=== PATIENT | female | born 1955 | race Caucasian/White ===

== ENCOUNTER 2017-08-29 13:47 | Emergency (ER) | END 2017-08-29 15:52 | disposition home or self-care (01) ==

== ENCOUNTER 2018-06-06 14:16 | Emergency (ER) | payer MEDICARE, OTHER ==
[~2018-06-06] VITALS: Ht 167.6 cm; Wt 88.5 kg
[~2018-06-06 14:16] MED LIST: HYDR-4011 PO
[2018-06-06 14:31] VITALS: BP 121/67; PULSE 87; RESP 18; Ht 167.6 cm; Wt 88.5 kg
[2018-06-06] MEDS ORDERED: HYDROCODONE/APAP (5/325) TAB PO ONE (16:30)
[2018-06-06] MEDS ORDERED: HYDR-4011 PO (17:50)
--- NOTE | 2018-06-06 17:53 | ERD ---
ER Documentation Chief Complaint Chief Complaint p slip/fall [place]; back pains. no relief w cyclobenzaprine. steady gait. HPI 63-year-old female presents with low back pain after slip and fall approximately 6 days ago. She has no bowel or bladder incontinence, weakness, history of head injury, fevers, cough, shortness of breath or chest pain. History of chronic back pain was prescribed Flexeril by an urgent care without relief. ROS All systems reviewed and are negative except as per history of present illness. Medications Home Meds Active Scripts Hydrocodone/Acetaminophen ([place] 5-325 Tablet) 1 Each Tablet, 1 TAB PO Q6H PRN for PAIN, #14 TAB Prov:AKBAR BANKS MD 06/06/18 Hydrocodone/Acetaminophen ([place] 5-325 Tablet) 1 Each Tablet, 1 TAB PO Q6H PRN for PAIN, #10 TAB Prov:AKBAR BANKS MD 08/29/17 Allergies Allergies: Coded Allergies: oxycodone (Verified Allergy, Unknown, 08/29/17) PMhx/Soc History of Surgery: Yes (left hip) Anesthesia Reaction: No Hx Neurological Disorder: No Hx Respiratory Disorders: No Hx Cardiac Disorders: Yes (HTN) Hx Psychiatric Problems: No Hx Miscellaneous Medical Probl: No Hx Alcohol Use: No Hx Substance Use: No Hx Tobacco Use: No Smoking Status: Never smoker FmHx Family History: No diabetes, No coronary disease, No other Physical Exam Vitals Vital Signs Date Temp Pulse Resp B/P (MAP) Pulse Ox O2 O2 Flow FiO2 Time Delivery Rate 06/06/18 98.8 87 18 121/67 96 14:31 (85) Physical Exam Const: No acute distress Head: Atraumatic Eyes: Normal Conjunctiva ENT: Normal External Ears, Nose and Mouth. Neck: Full range of motion. No meningismus. Resp: Clear to auscultation bilaterally Cardio: Regular rate and rhythm, no murmurs Abd: Soft, non tender, non distended. Normal bowel sounds Skin: No petechiae or rashes Back: No midline or flank tenderness. Tenderness diffusely L4-5 paraspinous without exquisite midline tenderness or deformities. Ext: No cyanosis, or edema Neur: Awake and alert. Normal gait without appreciable focal neurologic deficits. Psych: Normal Mood and Affect Results 24 hrs Current Medications Medications Dose Sig/Vasu Start Time Status Last (Trade) Ordered Route PRN Stop Time Admin Dose Reason Admin 1 tab ONCE ONCE 06/06/18 DC 06/06/18 Acetaminophen PO 16:30 06/06/18 17:00 / 16:31 Hydrocodone Bitart ([place] (5/325)) Procedures/MDM X-ray LS-Spine 3V Interpreted by me: Bones: No fracture, or lytic lesions Joints: No dislocation Foreign body: None. Impression-stable degenerative changes with grade 1 anterior listhesis of L5-S1. She was given [place] 5 mg by mouth. Patient presents with low back pain after slip and fall backwards onto her buttocks 6 days ago. She has no signs of fracture, dislocation, neurologic deficit, signs of bacterial infection, additional concerning signs or symptoms. Cures review shows patient has a history of chronic pain medications although no prescription in 4 months and prescriptions were mostly by primary doctor. We will give a short course of [place] for acute pain with primary care follow-up and return precautions. The patient was stable with no new complaints during the ER course. Clinically, there is no current evidence to suggest meningitis, sepsis, acute abdomen, pneumonia, stroke, acute coronary syndrome, pulmonary embolism, aortic dissection or any other emergent condition appearing to require further evaluation or hospitalization. Patient counseled regarding my diagnostic impression and care plan. Prior to discharge all questions answered. Pt agrees with treatment plan and understands strict return precautions. Pt is instructed to follow up with primary care provider within 24-48 hours. Precautionary instructions provided including instructions to return to the ER if not improving or for any worsening or changing symptoms or concerns. Departure Diagnosis: Primary Impression: Back pain Back pain location: low back pain Chronicity: acute Back pain laterality: bilateral Sciatica presence: without sciatica Qualified Codes: M54.5 - Low back pain Condition: Stable Patient Instructions: Back Pain (Acute Or Chronic) Referrals: VINNY MOY (PCP) Additional Instructions: No acute findings on x-ray. See primary doctor for follow-up. Recheck otherwise for fevers, new or worsening symptoms. AKBAR BANKS MD Jun 06, 2018 17:53
== END 2018-06-06 17:58 | disposition home or self-care (01) ==
LOC: FTE 14:16
DX: M54.5 Low back pain (principal); I10 Essential (primary) hypertension
CPT/HCPCS: 72100

== ENCOUNTER 2018-07-03 10:31 | Inpatient (IN) | payer MEDICARE, OTHER ==
[~2018-07-03] VITALS: Ht 167.6 cm; Wt 89.0 kg
[2018-07-03] MEDS ORDERED: SOD CHLORIDE 0.9% 1,000 ML IV STA (10:41)
--- NOTE | 2018-07-03 10:44 | ERD ---
ER Documentation Chief Complaint Chief Complaint RIGHT SIDE NUMBNESS, ONSET YESTERDAY AT 0600, SLURRED SPEECH HPI This is a 63-year-old female who said she rolled out of bed yesterday morning at 6 AM and fell to her right side. She said that at that time she noticed that her right arm and leg felt numb and weak but she said she wanted to wait a day to see if it got better. She said it did not get better and is getting gradually a little bit worse when she woke today. She said her right arm and leg are numb and weak and is difficult to raise her right arm and to walk. She has no facial symptoms, she says she had a little bit of slurred speech yesterday but not today. Denies headache ROS All systems reviewed and are negative except as per history of present illness. Medications Home Meds Active Scripts Hydrocodone/Acetaminophen ([place] 5-325 Tablet) 1 Each Tablet, 1 TAB PO Q6H PRN for PAIN, #14 TAB Prov:AKBAR BANKS MD 06/06/18 Reported Medications Ergocalciferol (Vitamin D2) (VITAMIN D2) 50,000 Unit Capsule, 85014 UNIT PO Q SUN, CAP 07/03/18 Prednisone* (Prednisone*) 1 Mg Tablet, 2 MG PO DAILY, TAB 07/03/18 Omeprazole* (Omeprazole*) 20 Mg Capsule.dr, 20 MG PO DAILY, #30 CAP 07/03/18 Metoprolol Tartrate* (Lopressor*) 25 Mg Tab, 25 MG PO DAILY, #60 TAB 07/03/18 Zolpidem Tartrate* (Zolpidem Tartrate*) 10 Mg Tablet, 10 MG PO QHS PRN for INSOMNIA, #30 TAB 07/03/18 Acyclovir* (Acyclovir*) 200 Mg Capsule, 200 MG PO DAILY, CAP 07/03/18 Metoclopramide* (Reglan*) 5 Mg Tablet, 5 MG PO DAILY BEFORE MEALS, TAB 07/03/18 Cyclobenzaprine Hcl* (Cyclobenzaprine Hcl*) 10 Mg Tablet, 10 MG PO QHS, #60 TAB 07/03/18 Doxepin Hcl* (Doxepin Hcl*) 25 Mg Capsule, 50 MG PO HS, CAP 07/03/18 Discontinued Scripts Hydrocodone/Acetaminophen ([facility] 5-325 Tablet) 1 Each Tablet, 1 TAB PO Q6H PRN for PAIN, #10 TAB Prov:AKBAR BANKS MD 08/29/17 Allergies Allergies: Coded Allergies: oxycodone (Verified Allergy, Unknown, 07/03/18) PMhx/Soc History of Surgery: Yes (left hip) Anesthesia Reaction: No Hx Neurological Disorder: No Hx Respiratory Disorders: No Hx Cardiac Disorders: Yes (HTN) Hx Psychiatric Problems: No Hx Miscellaneous Medical Probl: No Hx Alcohol Use: No Hx Substance Use: No Hx Tobacco Use: No FmHx Family History: No coronary disease Physical Exam Vitals Vital Signs Date Temp Pulse Resp B/P (MAP) Pulse Ox O2 O2 Flow FiO2 Time Delivery Rate 07/03/18 Nasal 2 11:17 Cannula 07/03/18 98.1 87 18 154/74 99 10:37 (100) Physical Exam Const: Well-developed, well-nourished Head: Atraumatic, normocephalic Eyes: Normal Conjunctiva, PERRLA, EOMI, normal sclera, no nystagmus ENT: Normal External Ears, Nose and Mouth, moist mucus membranes. Neck: Full range of motion. No meningismus, no lymphadenopathy. Resp: Clear to auscultation bilaterally, no wheezing, rhonchi, rales Cardio: Regular rate and rhythm, no murmurs, S1 S2 present Abd: Soft, non tender x 4, non distended. Normal bowel sounds, no guarding or rebound, no pulsitile abdominal masses or bruits Skin: No petechiae or rashes, no ecchymosis , no maculopapular rash Back: No midline or flank tenderness Ext: No cyanosis, or edema, FROM x 4, normal inspection, neurovascularly intact x 4 Neur: Awake and alert, right arm and leg have decreased sensation, right arm strength is 2-3 out of 5 as well as the right leg, cerebellum intact Psych: Normal Mood and Affect Result Diagram: 07/03/18 1112 07/03/18 1112 Results 24 hrs Laboratory Tests Test 07/03/18 11:12 07/03/18 11:21 White Blood Count 6.2 10^3/ul Red Blood Count 4.57 10^6/ul Hemoglobin 11.9 g/dl Hematocrit 37.5 % Mean Corpuscular Volume 82.1 fl Mean Corpuscular Hemoglobin 26.0 pg Mean Corpuscular Hemoglobin Concent 31.7 g/dl Red Cell Distribution Width 14.4 % Platelet Count 267 10^3/UL Mean Platelet Volume 8.8 fl Immature Granulocytes % 0.200 % Neutrophils % 38.3 % Lymphocytes % 53.5 % Monocytes % 6.5 % Eosinophils % 1.0 % Basophils % 0.5 % Nucleated Red Blood Cells % 0.0 /100WBC Immature Granulocytes # 0.010 10^3/ul Neutrophils # 2.4 10^3/ul Lymphocytes # 3.3 10^3/ul Monocytes # 0.4 10^3/ul Eosinophils # 0.1 10^3/ul Basophils # 0.0 10^3/ul Nucleated Red Blood Cells # 0.0 10^3/ul Prothrombin Time 12.2 Sec Prothrombin Time Ratio 1.0 INR International Normalized Ratio 0.89 Activated Partial Thromboplast Time 26.8 Sec Sodium Level 141 mmol/L Potassium Level 3.6 mmol/L Chloride Level 105 mmol/L Carbon Dioxide Level 21 mmol/L Anion Gap 15 Blood Urea Nitrogen 11 mg/dl Creatinine 0.82 mg/dl Est Glomerular Filtrat Rate mL/min > 60 mL/min Glucose Level 147 mg/dl Calcium Level 9.6 mg/dl Troponin I < 0.012 ng/ml Triglycerides Level 153 mg/dl Cholesterol Level 213 mg/dl LDL Cholesterol, Calculated 128 mg/dl HDL Cholesterol 54 mg/dl Cholesterol/HDL Ratio 3.9 RATIO Bedside Glucose 134 mg/dL Current Medications Medications Dose Sig/Vasu Start Time Status Last (Trade) Ordered Route PRN Stop Time Admin Dose Reason Admin Sodium 1,000 ml @ Q1H STAT 07/03/18 DC 07/03/18 Chloride 1,000 mls/hr IV 10:41 07/03/18 11:37 11:40 Procedures/MDM Ordering MD: BRAYDEN CHAUDHRY DO Location: E/R Room/Bed: PROCEDURE: CT Brain without contrast. CLINICAL INDICATION: Weakness. Code stroke. TECHNIQUE: A CT of the brain without contrast was performed utilizing axial sections from the skull base through the vertex. The patient was scanned without intravenous contrast enhancement. Sagittal and coronal reformatted images were obtained using the data from the axial images. Total exam DLP is 835.45 mGy-cm. CTDIvol is 48.08 mGy. One or more of the following dose reduction techniques were used: Automated exposure control, adjustment of the mA and/or kV according to patient size, use of iterative reconstruction technique. COMPARISON: None available FINDINGS: There is normal peters-white matter differentiation. The ventricles and cisterns are normal. There is no intracranial hemorrhage or space-occupying lesion. There is no skull fracture or lytic lesion. IMPRESSION: 1. Normal noncontrast CT scan of the brain. Call report: A call report of the findings was made to Dr. Chaudhry on 07/03/2018 at 1055 hours. RPTAT: QQ Physician Karmen Date Time Electronically viewed and signed by Physician Karmen on 07/03/2018 10:58 KR/ CC: BRAYDEN CHAUDHRY DO [id number] Ordering MD: BRAYDEN CHAUDHRY DO Location: E/R Room/Bed: PROCEDURE: XR Chest. CLINICAL INDICATION: Stroke. TECHNIQUE: Single frontal view. COMPARISON: None. FINDINGS: The lungs are clear. The heart size is normal. There is no pleural effusion. There is no pneumothorax. IMPRESSION: 1. Normal chest radiograph. RPTAT: QQ Physician Karmen Date Time Electronically viewed and signed by Physician Karmen on 07/03/2018 12:05 KR/ CC: BRAYDEN CHAUDHRY DO [id number] EKG: Rate/Rhythm: Normal Sinus Rhythm,NL intervals QRS, ST, QT: NORMAL [place], QRS, QT] Impression: NORMAL EKG Patient is not a TPA candidate due to onset of symptoms over 24 hours ago. Will admit to the hospital for MRI/MRA and stroke workup. Departure Diagnosis: Primary Impression: CVA (cerebral vascular accident) CVA mechanism: unspecified Qualified Codes: I63.9 - Cerebral infarction, unspecified Condition: Stable BRAYDEN CHAUDHRY DO Jul 03, 2018 10:44
[2018-07-03] MEDS ORDERED: DOXE25CA2 PO (11:04)
[2018-07-03] MEDS ORDERED: CYCL10TA7 PO (11:05)
[2018-07-03] MEDS ORDERED: METO5TAB58 PO (11:06)
[2018-07-03] MEDS ORDERED: ACYC200C2 PO (11:07)
[2018-07-03] MEDS ORDERED: ZOLP10TA5 PO (11:08)
[2018-07-03] MEDS ORDERED: OMEP20CA16 PO (11:09)
[2018-07-03] MEDS ORDERED: METO-448 PO (11:09)
[2018-07-03] MEDS ORDERED: ERGO500013 PO (11:10)
[2018-07-03] MEDS ORDERED: PRED1TAB2 PO (11:10)
[2018-07-03] MEDS ORDERED: ONDANSETRON 4 MG INJ IV PRN ×2 (13:00→22:00)
[2018-07-03] MEDS ORDERED: ACETAMINOPHEN 325 MG TAB PO PRN ×2 (13:00→22:00)
[2018-07-03 21:14] VITALS: PULSE 70
[2018-07-03 21:30] VITALS: BP 142/66; PULSE 68; RESP 18; Ht 167.6 cm; Wt 89.0 kg
--- NOTE | 2018-07-03 21:53 | HP ---
Date/Time of Note Date/Time of Note DATE: 07/03/18 TIME: 21:53 Assessment/Plan VTE Prophylaxis SCD applied (from Nsg): Yes Pharmacological prophylaxis: NA/contraindicated Pharm contraindication: low risk/ambulating Lines/Catheters IV Catheter Type (from Nrsg): Saline Lock Assessment/Plan Hospital Course This is a 63-year-old female being admitted to the telemetry floor for observation for: 1. acute CVA: CT scan of the head is negative. EKG is normal. Patient is showing improvement of her weakness in her right upper and lower extremity. At the current time we will start the patient on aspirin 81 mg daily, high-dose statin.. Hemoglobin A1c was 6.0. Lipid levels noted. Will obtain a echocardiogram with bubble study. MRI and MRA of the brain and neck. PT OT/speech therapy evaluation. Bedside swallow eval. will consult neurology . Permissive hypertension for the first 24-48 hours. Fall precautions. 2. sarcoidosis: Continue prednisone, omeprazole 3. hypertension: We will hold metoprolol at the current time given permissive hypertension 4. Insomnia: hold ambien for now 5. HSV: Patient reports she gets lesions of the genitals. Currently she does not have any lesions. Will continue acyclovir for prophylaxis 6. Bulging lumbar disc: We will watch for now, hold off on Flexeril at the moment 7. DVT GI prophylaxis: SCDs, home PPI Further treatment strategy will be implemented as per the clinical course. Result Diagram: 07/03/18 1112 07/03/18 1112 Results 24hrs Laboratory Tests Test 07/03/18 11:12 07/03/18 11:21 07/03/18 12:30 White Blood Count 6.2 Red Blood Count 4.57 Hemoglobin 11.9 L Hematocrit 37.5 Mean Corpuscular Volume 82.1 Mean Corpuscular Hemoglobin 26.0 L Mean Corpuscular Hemoglobin Concent 31.7 L Red Cell Distribution Width 14.4 Platelet Count 267 Mean Platelet Volume 8.8 Immature Granulocytes % 0.200 Neutrophils % 38.3 L Lymphocytes % 53.5 H Monocytes % 6.5 Eosinophils % 1.0 Basophils % 0.5 Nucleated Red Blood Cells % 0.0 Immature Granulocytes # 0.010 Neutrophils # 2.4 Lymphocytes # 3.3 H Monocytes # 0.4 Eosinophils # 0.1 Basophils # 0.0 Nucleated Red Blood Cells # 0.0 Prothrombin Time 12.2 Prothrombin Time Ratio 1.0 INR International Normalized Ratio 0.89 Activated Partial Thromboplast Time 26.8 Sodium Level 141 Potassium Level 3.6 Chloride Level 105 Carbon Dioxide Level 21 Anion Gap 15 H Blood Urea Nitrogen 11 Creatinine 0.82 Est Glomerular Filtrat Rate mL/min > 60 Glucose Level 147 Hemoglobin A1c 6.0 H Calcium Level 9.6 Troponin I < 0.012 Triglycerides Level 153 H Cholesterol Level 213 H LDL Cholesterol, Calculated 128 HDL Cholesterol 54 Cholesterol/HDL Ratio 3.9 Bedside Glucose 134 Urine Color STRAW Urine Clarity CLEAR Urine pH 6.0 Urine Specific [place] 1.004 Urine Ketones NEGATIVE Urine Nitrite NEGATIVE Urine Bilirubin NEGATIVE Urine Urobilinogen NEGATIVE Urine Leukocyte Esterase NEGATIVE Urine Hemoglobin NEGATIVE Urine Glucose NEGATIVE Urine Total Protein NEGATIVE Urine Opiates Screen Negative Urine Barbiturates Negative Urine Amphetamines Screen Negative Urine Benzodiazepines Screen Negative Urine Cocaine Screen Negative Urine Cannabinoids Negative HPI/ROS Admit Date/Time Admit Date/Time Jul 03, 2018 at 12:52 Hx of Present Illness Chief complaint: Right-sided upper lower extremity weakness and slurred speech This is a 63-year-old female who presented to the emergency department with complaints of right-sided upper and lower extremity weakness and slurred speech. Patient reports that yesterday at approximately 6 AM she woke up and noticed that she could not move her right upper and lower extremities. She ended up rolling out of bed and falling. She was unable to still move her right upper arm and leg and was experiencing numbness as well. She called over to her son who came and picked her up and put her on the bed. She stated that she waited to see if maybe she would get better. She reports that her symptoms did not improve and she came to the emergency department. She was seen in the ER and had a CT scan of the head without contrast which did not show any acute abnormalities. Patient was subsequently admitted to the floor for further workup. Upon my examination of the patient at the bedside the patient now has improved movement of her right upper and lower extremities though it is not completely back to normal. She does not have any slurred speech. She reports that her son stated that she was having slurred speech and that they could not understand some of her words. . She denies any chest pain or shortness of breath. She does have a history of "a hole in her heart. She does report that she takes Ambien at night for sleeping along with doxepin for sleeping as well. But she has been taking this for some time. She has a history of sarcoidosis for which she is on prednisone for. EKG: Shows normal sinus rhythm at 75 bpm, no ST or T wave abnormalities concern ing for acute ischemia Allergies: Oxycodone Medications: See ALEIDA GÓMEZ Const: As per HPI Eyes : No pain discharge or redness or change in visual acuity ENT: No pain, sore throat, congestion, congestion, dysphagia or discharge Respiratory: No shortness of breath, cough, sputum, wheezing, or pleuritic pain Cardiovascular: No chest pain, palpitation, PND, or edema GI : no change in appetite, abdominal pain, nausea, vomiting, diarrhea, constipation, or change in the color his stool Genitourinary: No dysuria, hematuria, flank pain , discharge or CVA tenderness Musculoskeletal: No joint pain, back pain, neck pain, restricted range of motion in neck or joints Skin: No rash, bruising or hives Neuro: As per HPI Endocrine: No polyuria, polydipsia, temperature intolerance Psych: No hallucination, depression, anxiety or suicidal ideation PMH/Family/Social Past Medical History Lumbar bulging disc, heart murmur, insomnia, hypertension, sarcoidosis, HSV Medications Current Medications Ondansetron HCl (Zofran Inj) 4 mg ER BRIDGE PRN IV NAUSEA/VOMITING; Start 07/03/18 at 13:00; Stop 07/04/18 at 12:59 Acetaminophen (Tylenol Tab) 650 mg ER BRIDGE PRN PO .MILD PAIN 1-3 OR TEMP; Start 07/03/18 at 13:00; Stop 07/04/18 at 12:59 Coded Allergies: oxycodone (Verified Allergy, Unknown, 07/03/18) Past Surgical History Left hip replacement, abdominal hernia surgery, pelvic surgery, ovarian cyst removal, hemorrhoid surgery, jaw surgery Family History Significant Family History: no pertinent family hx Social History Alcohol Use: none Smoking Status: Never smoker Drug Use: none Exam/Review of Systems Vital Signs Vitals Vital Signs Date Temp Pulse Resp B/P (MAP) Pulse Ox O2 O2 Flow FiO2 Time Delivery Rate 07/03/18 66 16 138/71 97 Room Air 20:59 (93) 07/03/18 97.6 18:26 07/03/18 2 11:17 Exam Exam General: Patient currently lying in bed in no acute distress. HEENT: Atraumatic, normocephalic. The pupils are equal, round and reactive. Extraocular motor are intact Neck: Supple with full range of motion. No rigidity or meningismus Chest: Nontender Lungs: Clear to auscultation bilaterally no crackles rales or wheezing Heart: Normal S1-S2, Regular rhythm and rate. No murmur, S3, or S4 Abdomen: Soft , nontender, nondistended , bowel sounds are present. No guarding no rebound tenderness , No masses or organomegaly. No costovertebral temporal angle mass Extremities: Normal to inspection, no edema no cyanosis Neurologic: Normal mental status, speech normal. Cranial nerves II through XII intact. Strength 4 out of 5 in right upper and lower extremities, strength 5 out of 5 in left upper and lower extremity. Decreased research assistant member strength of the right compared to the left. Gait not assessed Additional Comments PROCEDURE: CT Brain without contrast. CLINICAL INDICATION: Weakness. Code stroke. TECHNIQUE: A CT of the brain without contrast was performed utilizing axial sections from the skull base through the vertex. The patient was scanned without intravenous contrast enhancement. Sagittal and coronal reformatted images were obtained using the data from the axial images. Total exam DLP is 835.45 mGy-cm. CTDIvol is 48.08 mGy. One or more of the following dose reduction techniques were used: Automated exposure control, adjustment of the mA and/or kV according to patient size, use of iterative reconstruction technique. COMPARISON: None available FINDINGS: There is normal peters-white matter differentiation. The ventricles and cisterns are normal. There is no intracranial hemorrhage or space-occupying lesion. There is no skull fracture or lytic lesion. IMPRESSION: 1. Normal noncontrast CT scan of the brain. Call report: A call report of the findings was made to Dr. Prabhakar on 07/03/2018 at 1055 hours. RPTAT: QQ Physician Karmen Date Time Electronically viewed and signed by Physician Karmen on 07/03/2018 10:58 KR/ CC: BRAYDEN PRABHAKAR DO [id number] PROCEDURE: XR Chest. CLINICAL INDICATION: Stroke. TECHNIQUE: Single frontal view. COMPARISON: None. FINDINGS: The lungs are clear. The heart size is normal. There is no pleural effusion. There is no pneumothorax. IMPRESSION: 1. Normal chest radiograph. RPTAT: QQ Momo Oakley, Physician Date Time Electronically viewed and signed by Momo Oakley, Physician on 07/03/2018 12:05 KR/ CC: BRAYDEN PRABHAKAR DO [id number] ALAN ROSADO Jul 03, 2018 21:53
[2018-07-03] MEDS ORDERED: NACL 0.9% 3 ML SYG IV SCH (22:00)
[2018-07-03] MEDS ORDERED: DOCUSATE SODIUM 100 MG CAP PO PRN (22:00)
[2018-07-03] MEDS ORDERED: BISACODYL (EC) 5 MG TAB PO PRN (22:00)
[2018-07-03] MEDS ORDERED: hydrALAzine 20 MG INJ IV PRN (23:30)
[2018-07-03] MEDS ORDERED: ZOLPIDEM 5 MG TAB PO PRN (23:30)
[2018-07-04] VITALS (10 sets, daily range): BP systolic 118–140; BP diastolic 60–80; PULSE 67–83; RESP 17–20
[2018-07-04] MEDS: ATORVASTATIN 80 MG TAB PO SCH ×2 (00:08→20:08)
[2018-07-04] MEDS ORDERED: LORAZEPAM 2 MG INJ IV ONE (03:00)
[2018-07-04] MEDS: PANTOPRAZOLE (EC) 40 MG TAB PO SCH (06:46)
--- NOTE | 2018-07-04 07:17 | CONS ---
Assessment/Plan Assessment/Plan Hospital Course 63 F c/ HTN who presents for evaluation of R sided weakness c/b fall...for which neurology is consulted. The clinical picture is most ominously concerning for stroke.. Head CT is unrevealing. LDL 128 P: Await MRI brain for further characterization Agree w/ asa/lipitor daily for now, for stroke prevention pending the above PT/OT/ST as necessary BP control and other medical management per primary Will follow clinically, to recommend additional neurologic studies as necessary Consultation Date/Type/Reason Admit Date/Time Jul 03, 2018 at 12:52 Type of Consult Neurology Reason for Consultation stroke Requesting Provider: ALAN ROSADO Date/Time of Note DATE: 07/04/18 TIME: 07:17 Hx of Present Illness This is a 63-year-old female who presented to the emergency department with complaints of right-sided upper and lower extremity weakness and slurred speech. Patient reports that yesterday at approximately 6 AM she woke up and noticed that she could not move her right upper and lower extremities. She ended up rolling out of bed and falling. She was unable to still move her right upper arm and leg and was experiencing numbness as well. She called over to her son who came and picked her up and put her on the bed. She stated that she waited to see if maybe she would get better. She reports that her symptoms did not improve and she came to the emergency department. She was seen in the ER and had a CT scan of the head without contrast which did not show any acute abnormalities. Patient was subsequently admitted to the floor for further lexy p. Upon my examination of the patient at the bedside the patient now has improved movement of her right upper and lower extremities though it is not completely back to normal. She does not have any slurred speech. She reports that her son stated that she was having slurred speech and that they could not understand some of her words. . She denies any chest pain or shortness of breath. She does have a history of "a hole in her heart. She does report that she takes Ambien at night for sleeping along with doxepin for sleeping as well. But she has been taking this for some time. She has a history of sarcoidosis for which she is on prednisone for. EKG: Shows normal sinus rhythm at 75 bpm, no ST or T wave abnormalities concerning for acute ischemia Allergies: Oxycodone 12 PT ROS ow neg Exam/Review of Systems Exam Vitals Vital Signs Date Temp Pulse Resp B/P (MAP) Pulse Ox O2 O2 Flow FiO2 Time Delivery Rate 07/04/18 98.5 71 18 129/70 94 04:00 (89) 07/03/18 Room Air 20:59 07/03/18 2 11:17 Intake and Output 07/03/18 07/03/18 07/04/18 1515:00 23:00 07:00 IntakeIntake Total 350 ml BalanceBalance 350 ml Exam PE: Gen Appearance: No Apparent Distress HEENT: Normocephalic Cardiovascular: Regular rate Abdomen: Soft Extremities: Dry NE: The patient was alert and oriented. Language was normal. Fund of knowledge was normal. Pupils were equal and reactive to light. There was no afferent pupillary defect. Visual lopez were normal. Funduscopic examination was limited. Extra-ocular movements were full. Ptosis was absent. There was no nystagmus. Facial sensation was normal. Face was symmetric with normal strength. Hearing was intact. Palate movements were normal. Neck strength was normal. There was normal tongue bulk and speed of movement. Tone was normal. Muscle bulk was normal. I did not see fasciculations. Arms and legs were mildly weak on the right Vibration sensation was normal. Temperature and pinprick sensation was normal. Rapid alternating movements were normal. There was no dysmetria. There was no intention tremor. Gait was deferred due to bedrest. Arm and leg reflexes were symmetric. Ch's sign was absent. Plantar re sponses were flexor. Results Result Diagram: 07/04/1860107/04/18 06 Results 24hrs Laboratory Tests Test 07/03/18 11:12 07/03/18 11:21 07/03/18 12:30 07/04/18 06:02 White Blood Count 6.2 6.8 Red Blood Count 4.57 4.27 Hemoglobin 11.9 L 11.0 L Hematocrit 37.5 34.4 L Mean Corpuscular Volume 82.1 80.6 L Mean Corpuscular 26.0 L 25.8 L Hemoglobin Mean Corpuscular 31.7 L 32.0 Hemoglobin Concent Red Cell Distribution 14.4 14.4 Width Platelet Count 267 264 Mean Platelet Volume 8.8 8.8 Immature Granulocytes % 0.200 0.100 Neutrophils % 38.3 L 31.8 L Lymphocytes % 53.5 H 60.1 H Monocytes % 6.5 6.3 Eosinophils % 1.0 1.3 Basophils % 0.5 0.4 Nucleated Red Blood 0.0 0.0 Cells % Immature Granulocytes # 0.010 0.010 Neutrophils # 2.4 2.2 Lymphocytes # 3.3 H 4.1 H Monocytes # 0.4 0.4 Eosinophils # 0.1 0.1 Basophils # 0.0 0.0 Nucleated Red Blood 0.0 0.0 Cells # Prothrombin Time 12.2 Prothrombin Time Ratio 1.0 INR International 0.89 Normalized Ratio Activated 26.8 Partial Thromboplast Time Sodium Level 141 140 Potassium Level 3.6 4.0 Chloride Level 105 105 Carbon Dioxide Level 21 25 Anion Gap 15 H 10 # Blood Urea Nitrogen 11 12 Creatinine 0.82 0.77 Est Glomerular Filtrat > 60 > 60 Rate mL/min Glucose Level 147 109 Hemoglobin A1c 6.0 H Calcium Level 9.6 9.4 Troponin I < 0.012 Triglycerides Level 153 H Cholesterol Level 213 H LDL Cholesterol, 128 Calculated HDL Cholesterol 54 Cholesterol/HDL Ratio 3.9 Bedside Glucose 134 Urine Color STRAW Urine Clarity CLEAR Urine pH 6.0 Urine Specific [place] 1.004 Urine Ketones NEGATIVE Urine Nitrite NEGATIVE Urine Bilirubin NEGATIVE Urine Urobilinogen NEGATIVE Urine Leukocyte Esterase NEGATIVE Urine Hemoglobin NEGATIVE Urine Glucose NEGATIVE Urine Total Protein NEGATIVE Urine Opiates Screen Negative Urine Barbiturates Negative Urine Amphetamines Negative Screen Urine Benzodiazepines Negative Screen Urine Cocaine Screen Negative Urine Cannabinoids Negative Magnesium Level 1.9 Total Bilirubin 0.3 Direct Bilirubin 0.00 Indirect Bilirubin 0.3 Aspartate Amino 23 Transf (AST/SGOT) Alanine 14 Aminotransferase (ALT/SG PT) Alkaline Phosphatase 71 Total Protein 7.1 Albumin 3.8 Globulin 3.30 H Albumin/Globulin Ratio 1.15 Thyroid Stimulating Pending Hormone (TSH) Medications Medication Current Medications IV Flush (NS 3 ml) 3 ml PER PROTOCOL IV ; Start 07/03/18 at 22:00 Ondansetron HCl (Zofran Inj) 4 mg Q6H PRN IV NAUSEA/VOMITING; Start 07/03/18 at 22:00 Acetaminophen (Tylenol Tab) 650 mg Q6H PRN PO .PAIN 1-3 OR TEMP; Start 07/03/18 at 22:00 Docusate Sodium (Colace) 100 mg Q12H PRN PO .CONSTIPATION; Start 07/03/18 at 22:00 Bisacodyl (Dulcolax) 5 mg DAILY PRN PO .CONSTIPATION; Start 07/03/18 at 22:00 Pantoprazole (Protonix Tab) 40 mg DAILY@06 PO Last administered on 07/04/18at 06:46; Admin Dose 40 MG; Start 07/04/18 at 06:00 Acyclovir (Zovirax) 200 mg DAILY PO ; Start 07/04/18 at 09:00 Prednisone (Prednisone) 2 mg DAILY PO ; Start 07/04/18 at 09:00 Hydralazine HCl (Apresoline) 10 mg Q4H PRN IV ELEVATED BLOOD PRESSURE; Start 07/03/18 at 23:30 Metoprolol Tartrate (Lopressor) 25 mg DAILY PO ; Start 07/04/18 at 09:00 Aspirin (Halfprin) 81 mg DAILY PO ; Start 07/04/18 at 09:00 Atorvastatin Calcium (Lipitor) 80 mg HS PO Last administered on 07/04/18at 00:08; Admin Dose 80 MG; Start 07/03/18 at 23:30 Past Medical History reviewed Home Meds Active Scripts Hydrocodone/Acetaminophen ([place] 5-325 Tablet) 1 Each Tablet, 1 TAB PO Q6H PRN for PAIN, #14 TAB Prov:AKBAR BANKS MD 06/06/18 Reported Medications Ergocalciferol (Vitamin D2) (VITAMIN D2) 50,000 Unit Capsule, 49640 UNIT PO Q SUN, CAP 07/03/18 Prednisone* (Prednisone*) 1 Mg Tablet, 2 MG PO DAILY, TAB 07/03/18 Omeprazole* (Omeprazole*) 20 Mg Capsule.dr, 20 MG PO DAILY, #30 CAP 07/03/18 Metoprolol Tartrate* (Lopressor*) 25 Mg Tab, 25 MG PO DAILY, #60 TAB 07/03/18 Zolpidem Tartrate* (Zolpidem Tartrate*) 10 Mg Tablet, 10 MG PO QHS PRN for INSOMNIA, #30 TAB 07/03/18 Acyclovir* (Acyclovir*) 200 Mg Capsule, 200 MG PO DAILY, CAP 07/03/18 Metoclopramide* (Reglan*) 5 Mg Tablet, 5 MG PO DAILY BEFORE MEALS, TAB 07/03/18 Cyclobenzaprine Hcl* (Cyclobenzaprine Hcl*) 10 Mg Tablet, 10 MG PO QHS, #60 TAB 07/03/18 Doxepin Hcl* (Doxepin Hcl*) 25 Mg Capsule, 50 MG PO HS, CAP 07/03/18 Discontinued Scripts Hydrocodone/Acetaminophen ([place] 5-325 Tablet) 1 Each Tablet, 1 TAB PO Q6H PRN for PAIN, #10 TAB Prov:AKBAR ABNKS MD 08/29/17 Medications Current Medications IV Flush (NS 3 ml) 3 ml PER PROTOCOL IV ; Start 07/03/18 at 22:00 Ondansetron HCl (Zofran Inj) 4 mg Q6H PRN IV NAUSEA/VOMITING; Start 07/03/18 at 22:00 Acetaminophen (Tylenol Tab) 650 mg Q6H PRN PO .PAIN 1-3 OR TEMP; Start 07/03/18 at 22:00 Docusate Sodium (Colace) 100 mg Q12H PRN PO .CONSTIPATION; Start 07/03/18 at 22:00 Bisacodyl (Dulcolax) 5 mg DAILY PRN PO .CONSTIPATION; Start 07/03/18 at 22:00 Pantoprazole (Protonix Tab) 40 mg DAILY@06 PO Last administered on 07/04/18at 06:46; Admin Dose 40 MG; Start 07/04/18 at 06:00 Acyclovir (Zovirax) 200 mg DAILY PO ; Start 07/04/18 at 09:00 Prednisone (Prednisone) 2 mg DAILY PO ; Start 07/04/18 at 09:00 Hydralazine HCl (Apresoline) 10 mg Q4H PRN IV ELEVATED BLOOD PRESSURE; Start 07/03/18 at 23:30 Metoprolol Tartrate (Lopressor) 25 mg DAILY PO ; Start 07/04/18 at 09:00 Aspirin (Halfprin) 81 mg DAILY PO ; Start 07/04/18 at 09:00 Atorvastatin Calcium (Lipitor) 80 mg HS PO Last administered on 07/04/18at 00:08; Admin Dose 80 MG; Start 07/03/18 at 23:30 Allergies: Coded Allergies: oxycodone (Verified Allergy, Unknown, 07/03/18) Past Surgical History reviewed Social History Alcohol Use: none Smoking Status: Never smoker Drug Use: none JA VEGA Jul 04, 2018 07:17
[2018-07-04] MEDS: METOPROLOL 25 MG TAB PO SCH (08:58)
[2018-07-04] MEDS: ASPIRIN (EC) 81 MG TAB PO SCH (08:58)
[2018-07-04] MEDS: ACYCLOVIR 200 MG CAP PO SCH (08:58)
[2018-07-04] MEDS ORDERED: predniSONE 1 MG TAB PO SCH (09:00)
--- NOTE | 2018-07-04 11:14 | QN ---
Documentation Comment 63-year-old female with history of Migraines,GERD, HSV, osteoarthritis, sa rcoidosis, admitted with right-sided weakness and slurred speech. Patient continued to have mild weakness on her right side, however improved from prior. Speech is clearer. Neurology consultation has been requested and we will follow-up recommendations. Continue with aspirin/statin regimen. Follow-up MRI ordered. PT eval and treat. Case d/w MINH Garcia V. MEDIA MARKETING DIRECTOR Jul 04, 2018 11:14
--- NOTE | 2018-07-04 11:27 | PN ---
Date/Time of Note Date/Time of Note DATE: 07/04/18 TIME: 11:23 Assessment/Plan VTE Prophylaxis Risk score (from Ns)>0 risk: 3 SCD applied (from Ns): Yes Pharmacological prophylaxis: NA/contraindicated Pharm contraindication: low risk/ambulating Lines/Catheters [facility] Urinary Cath still in place: No Assessment/Plan Hospital Course SUBJECTIVE: Sitting up in chair, with improved right-sided weakness. Speech is clearer. No headache or other distress reported. OBJECTIVE: Vital signs-see below PHYSICAL EXAM: Constitutional: Well-developed, adequately built, lying in bed comfortably. Psych: nl mood/affect, no complaints Head: atraumatic, normocephalic Eyes: nl conjunctiva, nl sclera ENMT: mucosa pink and moist, nl external ears & nose Neck: non-tender, supple Respiratory: clear to auscultation, normal air movement Cardiovascular: nl pulses, regular rate and rhythm Gastrointestinal: non-tender, soft, bowel sounds active in all 4 quadrants. Musculoskeletal/extremities: +Right slide w/mild weakness. Motor strength 5/5. nl extremities to inspection,Normal pulses,no cyanosis, no edema. Neurological: Alert oriented 3,speech slightly slurred, nl strength Skin: nl turgor ASSESSMENT/PLAN:3-year-old female with history of Migraines,GERD, HSV, osteoarthritis, sarcoidosis, admitted with right-sided weakness and slurred speech. 1.Right-sided weakness/slurred speech, Clinical symptoms most consistent w/possible migraine hemiplegia. Acute CVA cannot be excluded. -Symptoms resolving.... -cont. Aspirin/statin, -follow-up MRI studies/neurology recommendations, -PT/OT/ST 2. Sarcoidosis - Continue prednisone,PPI 3. Hypertension -Keep normotensive, resume antihypertensives as 24 hr time elapse for permissib le BP is done 4. HSV -Currently she does not have any lesions. -Obtain HSV/HIV antibodies -on acyclovir prophylaxis 6.Lumbar disc prolapse, chronic -no acute issues 7.Migraine headaches -No acute issues -PRN Pain meds DVT GI prophylaxis: SCDs, home PPI Dispo:Continue current management. Follow-up neurology recommendations. patient was seen in collaboration with Dr. Yoon. Result Diagram: 07/04/18 0602 07/04/18 0602 Results 24hrs Laboratory Tests Test 07/03/18 12:30 07/04/18 06:02 Urine Color STRAW Urine Clarity CLEAR Urine pH 6.0 Urine Specific [place] 1.004 Urine Ketones NEGATIVE Urine Nitrite NEGATIVE Urine Bilirubin NEGATIVE Urine Urobilinogen NEGATIVE Urine Leukocyte Esterase NEGATIVE Urine Hemoglobin NEGATIVE Urine Glucose NEGATIVE Urine Total Protein NEGATIVE Urine Opiates Screen Negative Urine Barbiturates Negative Urine Amphetamines Screen Negative Urine Benzodiazepines Screen Negative Urine Cocaine Screen Negative Urine Cannabinoids Negative White Blood Count 6.8 Red Blood Count 4.27 Hemoglobin 11.0 L Hematocrit 34.4 L Mean Corpuscular Volume 80.6 L Mean Corpuscular Hemoglobin 25.8 L Mean Corpuscular Hemoglobin Concent 32.0 Red Cell Distribution Width 14.4 Platelet Count 264 Mean Platelet Volume 8.8 Immature Granulocytes % 0.100 Neutrophils % 31.8 L Lymphocytes % 60.1 H Monocytes % 6.3 Eosinophils % 1.3 Basophils % 0.4 Nucleated Red Blood Cells % 0.0 Immature Granulocytes # 0.010 Neutrophils # 2.2 Lymphocytes # 4.1 H Monocytes # 0.4 Eosinophils # 0.1 Basophils # 0.0 Nucleated Red Blood Cells # 0.0 Sodium Level 140 Potassium Level 4.0 Chloride Level 105 Carbon Dioxide Level 25 Anion Gap 10 # Blood Urea Nitrogen 12 Creatinine 0.77 Est Glomerular Filtrat Rate mL/min > 60 Glucose Level 109 Calcium Level 9.4 Magnesium Level 1.9 Total Bilirubin 0.3 Direct Bilirubin 0.00 Indirect Bilirubin 0.3 Aspartate Amino Transf (AST/SGOT) 23 Alanine Aminotransferase (ALT/SGPT) 14 Alkaline Phosphatase 71 Total Protein 7.1 Albumin 3.8 Globulin 3.30 H Albumin/Globulin Ratio 1.15 Thyroid Stimulating Hormone (TSH) 3.190 Exam/Review of Systems Exam Vitals Vital Signs Date Temp Pulse Resp B/P (MAP) Pulse Ox O2 O2 Flow FiO2 Time Delivery Rate 07/04/18 79 08:00 07/04/18 98.6 20 132/65 94 Room Air 07:53 (87) 07/03/18 2 11:17 Intake and Output 07/03/18 07/03/18 07/04/18 1414:59 22:59 06:59 IntakeIntake Total 350 ml BalanceBalance 350 ml Results Results 24hrs Laboratory Tests Test 07/03/18 12:30 07/04/18 06:02 Urine Color STRAW Urine Clarity CLEAR Urine pH 6.0 Urine Specific [place] 1.004 Urine Ketones NEGATIVE Urine Nitrite NEGATIVE Urine Bilirubin NEGATIVE Urine Urobilinogen NEGATIVE Urine Leukocyte Esterase NEGATIVE Urine Hemoglobin NEGATIVE Urine Glucose NEGATIVE Urine Total Protein NEGATIVE Urine Opiates Screen Negative Urine Barbiturates Negative Urine Amphetamines Screen Negative Urine Benzodiazepines Screen Negative Urine Cocaine Screen Negative Urine Cannabinoids Negative White Blood Count 6.8 Red Blood Count 4.27 Hemoglobin 11.0 L Hematocrit 34.4 L Mean Corpuscular Volume 80.6 L Mean Corpuscular Hemoglobin 25.8 L Mean Corpuscular Hemoglobin Concent 32.0 Red Cell Distribution Width 14.4 Platelet Count 264 Mean Platelet Volume 8.8 Immature Granulocytes % 0.100 Neutrophils % 31.8 L Lymphocytes % 60.1 H Monocytes % 6.3 Eosinophils % 1.3 Basophils % 0.4 Nucleated Red Blood Cells % 0.0 Immature Granulocytes # 0.010 Neutrophils # 2.2 Lymphocytes # 4.1 H Monocytes # 0.4 Eosinophils # 0.1 Basophils # 0.0 Nucleated Red Blood Cells # 0.0 Sodium Level 140 Potassium Level 4.0 Chloride Level 105 Carbon Dioxide Level 25 Anion Gap 10 # Blood Urea Nitrogen 12 Creatinine 0.77 Est Glomerular Filtrat Rate mL/min > 60 Glucose Level 109 Calcium Level 9.4 Magnesium Level 1.9 Total Bilirubin 0.3 Direct Bilirubin 0.00 Indirect Bilirubin 0.3 Aspartate Amino Transf (AST/SGOT) 23 Alanine Aminotransferase (ALT/SGPT) 14 Alkaline Phosphatase 71 Total Protein 7.1 Albumin 3.8 Globulin 3.30 H Albumin/Globulin Ratio 1.15 Thyroid Stimulating Hormone (TSH) 3.190 Medications Medication Current Medications IV Flush (NS 3 ml) 3 ml PER PROTOCOL IV ; Start 07/03/18 at 22:00 Ondansetron HCl (Zofran Inj) 4 mg Q6H PRN IV NAUSEA/VOMITING; Start 07/03/18 at 22:00 Acetaminophen (Tylenol Tab) 650 mg Q6H PRN PO .PAIN 1-3 OR TEMP; Start 07/03/18 at 22:00 Docusate Sodium (Colace) 100 mg Q12H PRN PO .CONSTIPATION; Start 07/03/18 at 22:00 Bisacodyl (Dulcolax) 5 mg DAILY PRN PO .CONSTIPATION; Start 07/03/18 at 22:00 Pantoprazole (Protonix Tab) 40 mg DAILY@06 PO Last administered on 07/04/18at 06:46; Admin Dose 40 MG; Start 07/04/18 at 06:00 Acyclovir (Zovirax) 200 mg DAILY PO Last administered on 07/04/18at 08:58; Admin Dose 200 MG; Start 07/04/18 at 09:00 Hydralazine HCl (Apresoline) 10 mg Q4H PRN IV ELEVATED BLOOD PRESSURE; Start 07/03/18 at 23:30 Metoprolol Tartrate (Lopressor) 25 mg DAILY PO Last administered on 07/04/18at 08:58; Admin Dose 25 MG; Start 07/04/18 at 09:00 Aspirin (Halfprin) 81 mg DAILY PO Last administered on 07/04/18at 08:58; Admin Dose 81 MG; Start 07/04/18 at 09:00 Atorvastatin Calcium (Lipitor) 80 mg HS PO Last administered on 07/04/18at 00:08; Admin Dose 80 MG; Start 07/03/18 at 23:30 Prednisone (Prednisone) 1 mg DAILY PO ; Start 07/05/18 at 09:00 MINH BRAUN NP Jul 04, 2018 11:27
--- NOTE | 2018-07-04 20:17 | RADRPT ---
Echocardiogram Report Patient Name: MICHEAL VERNONPatient ID: [id number] : 1955 (63y 5m)Study Date: 07/04/2018 10:06:00 AM Gender: FAccession #: [id number] Tech: LE Location: Ref.Physician: ALAN ROSADO Height(Cm): BSA: Weight(Kg): Quality: GoodAccount #: Procedures: Echocardiographic Report: Transthoracic echocardiogram with complete 2D, M-Mode, and doppler examination. Indications: Cerebrovascular Accident. Measurements: 2D/M Mode Doppler Measurement Value Normal Range Measurement Value Normal Range AoR Diam MM 3.4 [ 2.3 - 3.1 ] cm DELMI Vmax 2.7 [ 2.0 - 4.0 ] cm2 ACS MM 2.3 [ 2.7 - 3.3 ] cm AV Mean Lobo 0.7 [ 70.0 - 90.0 ] cm/sec LA/Ao MM 1.1 ratio AV Mean PG 2.0 [ 2.0 - 4.0 ] mmHg LA Dimen MM 3.7 AV Peak Lobo 0.9 [ 100.0 - 170.0 ] cm/sec LVIDd 2D 4.7 [ 3.8 - 5.2 ] cm AV Peak PG 3.0 [ 2.0 - 9.0 ] mmHg LVIDs 2D 3.5 [ 2.2 - 3.5 ] cm AV VTI 19.6 cm LVPWd 2D 1.0 [ 0.6 - 0.9 ] cm LVOT Peak Lobo 0.7 [ 70.0 - 110.0 ] cm/sec IVSd 2D 1.0 [ 0.6 - 0.9 ] cm LVOT Peak PG 2.0 [ 2.0 - 6.0 ] mmHg IVS/LVPW 2D 1.0 ratio MV E Peak Lobo 0.7 [ 60.0 - 130.0 ] cm/sec LVOT Diam 2.0 [ 2.1 - 2.5 ] cm MV A Peak Lobo 0.9 [ 100.0 - 120.0 ] cm/sec LVOT Area 3.1 cm2 MV E/A 0.8 [ 0.8 - 1.5 ] ratio MV Decel Time 155 [ 104 - 258 ] msec Lat E` Lobo 0.1 [ 10.0 - 15.0 ] cm/sec Med E` Lobo 0.1 cm/sec MV E/A 0.8 [ 0.8 - 1.5 ] ratio TR Peak Lobo 2.3 [ 100.0 - 280.0 ] cm/sec TR Peak PG 22.0 mmHg PV Peak Lobo 0.6 [ 40.0 - 80.0 ] cm/sec PV Peak PG 1.0 mmHg Findings: Left Ventricle: Normal left ventricular systolic function. Normal left ventricular cavity size. Normal left ventricular wall thickness. Ejection fraction is visually estimated at 60 %. Tissue Doppler/Mitral Doppler indices are consistent with impaired relaxation (Stage I diastolic dysfunction). Right Ventricle: Normal right ventricular size. Normal right ventricular systolic function. Left Atrium: The left atrium is normal in size. Right Atrium: The right atrium is normal in size. Atrial Septum: Normal atrial septum. Bubble study was performed with and with out valsalva indicating no evidence of intra atrial shunt. Mitral Valve: Normal appearance of the mitral valve. Trace mitral regurgitation. Aortic Valve: Normal appearance of the aortic valve. No significant aortic stenosis or insufficiency. Tricuspid Valve: Normal appearance of the tricuspid valve. Estimated peak PA systolic pressure 25 mmHg. There is trace tricuspid regurgitation. Pulmonic Valve: Normal pulmonic valve appearance. There is trace pulmonic regurgitation. Pericardium: Normal pericardium with no significant pericardial effusion. Aorta: Normal aortic root. IVC: Normal size and normal respiratory collapse consistent with normal right atrial pressure. Conclusions: Normal left ventricular systolic function. Grade 1 diastolic dysfunction. Bubble study negative for right to left shunting. Trace mitral, tricuspid and pulmonic regurgitation with normal pulmonary pressures. Electronically Signed By: Jenniffer Benavides 2018-07-04 20:17:12 PDT
[2018-07-05] VITALS (11 sets, daily range): BP systolic 107–131; BP diastolic 56–69; PULSE 59–102; RESP 17–18
[2018-07-05] MEDS ORDERED: LORAZEPAM 2 MG INJ IV ONE
[2018-07-05] MEDS: PANTOPRAZOLE (EC) 40 MG TAB PO SCH (06:14)
--- NOTE | 2018-07-05 07:03 | CONS ---
Assessment/Plan Assessment/Plan Hospital Course 63 F c/ HTN who presents for evaluation of R sided weakness c/b fall...for which neurology is consulted. MRI brain confirmed an acute L fronto-parietal infarction. MRA Neck was notable for moderate to severe L cervical ICA stenosis w/ nonocclusive thrombus.. MRA Head was unremarkable LDL 128; A1C 6.0 P: Vascular surgery consultation for evaluation and management of symptomatic L cervi al ICA stenosis. Add ESR, RPR Agree w/ asa/lipitor daily for now for secondary stroke prevention PT/OT/ST as necessary BP control and other medical management per primary Will follow clinically Consultation Date/Type/Reason Admit Date/Time Jul 03, 2018 at 12:52 Type of Consult Neurology Reason for Consultation stroke Requesting Provider: ALAN ROSADO Date/Time of Note DATE: 07/05/18 TIME: 07:02 24 HR Interval Summary Free Text/Dictation s/p MRI/A brain Exam Vital Signs Vitals Vital Signs Date Temp Pulse Resp B/P (MAP) Pulse Ox O2 O2 Flow FiO2 Time Delivery Rate 07/05/18 98.1 86 17 120/69 98 05:54 (86) 07/04/18 Room Air 15:56 07/03/18 2 11:17 Intake and Output 07/04/18 07/04/18 07/05/18 1515:00 23:00 07:00 IntakeIntake Total 840 ml 200 ml OutputOutput Total 900 ml BalanceBalance -60 ml 200 ml Exam PE: Gen Appearance: No Apparent Distress HEENT: Normocephalic Cardiovascular: Regular rate Abdomen: Soft Extremities: Dry NE: The patient was alert and oriented. Language was normal. Fund of knowledge was n ormal. Pupils were equal and reactive to light. There was no afferent pupillary defect. Visual lopez were normal. Funduscopic examination was limited. Extra-ocular movements were full. Ptosis was absent. There was no nystagmus. Facial sensation was normal. Face was symmetric with normal strength. Hearing was intact. Palate movements were normal. Neck strength was normal. There was normal tongue bulk and speed of movement. Tone was normal. Muscle bulk was normal. I did not see fasciculations. Arms and legs were mildly weak on the right Vibration sensation was normal. Temperature and pinprick sensation was normal. Rapid alternating movements were normal. There was no dysmetria. There was no intention tremor. Gait was deferred due to bedrest. Arm and leg reflexes were symmetric. Ch's sign was absent. Plantar responses were flexor. JA VEGA Jul 05, 2018 07:02 CAROLINE PERSON NP Jul 05, 2018 14:59
[2018-07-05] MEDS: ACYCLOVIR 200 MG CAP PO SCH (08:21)
[2018-07-05] MEDS: ASPIRIN (EC) 81 MG TAB PO SCH (08:21)
[2018-07-05] MEDS: predniSONE 1 MG TAB PO SCH (08:21)
[2018-07-05] MEDS: METOPROLOL 25 MG TAB PO SCH (08:22)
--- NOTE | 2018-07-05 10:06 | PN ---
Date/Time of Note Date/Time of Note DATE: 07/05/18 TIME: 10:02 Assessment/Plan VTE Prophylaxis Risk score (from Ns)>0 risk: 3 SCD applied (from Ns): Yes Pharmacological prophylaxis: NA/contraindicated Pharm contraindication: low risk/ambulating Lines/Catheters [facility]from [facility] Saline Lock Urinary Cath still in place: No Assessment/Plan Hospital Course SUBJECTIVE: lying in bed, having right-sided weakness. Speech is clear. OBJECTIVE: Vital signs-see below PHYSICAL EXAM: Constitutional: Well-developed, adequately built, lying in bed comfortably. Psych: nl mood/affect, no complaints Head: atraumatic, normocephalic Eyes: nl conjunctiva, nl sclera ENMT: mucosa pink and moist, nl external ears & nose Neck: non-tender, supple Respiratory: clear to auscultation, normal air movement Cardiovascular: nl pulses, regular rate and rhythm Gastrointestinal: non-tender, soft, bowel sounds active in all 4 quadrants. Musculoskeletal/extremities: +Right slide w/mild weakness. Motor strength 5/5. nl extremities to inspection,Normal pulses,no cyanosis, no edema. Neurological: Alert oriented 3,speech slightly slurred, nl strength Skin: nl turgor ASSESSMENT/PLAN:3-year-old female with history of Migraines,GERD, HSV, osteoarthritis, sarcoidosis, admitted with right-sided weakness and slurred speech,found to have acute stroke. 1.Acute cerebrovascular accident W/ left ICA occlusion -mri: Acute left posterior frontal and anterior parietal periventricular and deep white matter ischemic infarct. -cont. Aspirin/statin -PT/OT/ST 2.Symptomatic left ICA stenosis. -CTA: Left proximal internal carotid artery incompletely occlusive thrombus over a 12 mm line and moderate to severe 60-70% stenosis=>spoke w/ and recommended vascular eval. -Vascular consult w/ -cont.antiplatelet/statin 3. Sarcoidosis - Continue prednisone,PPI 4. Hypertension -stable -cont.antihypertensives 5. HSV -Currently she does not have any lesions. -on acyclovir prophylaxis 6.Lumbar disc prolapse, chronic -no acute issues 7.Migraine headaches -No acute issues -PRN Pain meds DVT GI prophylaxis: SCDs, home PPI Dispo:Continue current management. Follow-up vascular/ neurology recommendations. patient was seen in collaboration with Dr. Yoon. Result Diagram: 07/04/18 0602 07/04/18 0602 Exam/Review of Systems Exam Vitals Vital Signs Date Temp Pulse Resp B/P (MAP) Pulse Ox O2 O2 Flow FiO2 Time Delivery Rate 07/05/18 78 08:14 07/05/18 98.2 18 110/56 100 08:02 (74) 07/04/18 Room Air 15:56 07/03/18 2 11:17 Intake and Output 07/04/18 07/04/18 07/05/18 1515:00 23:00 07:00 IntakeIntake Total 840 ml 200 ml OutputOutput Total 900 ml BalanceBalance -60 ml 200 ml Medications Medication Current Medications IV Flush (NS 3 ml) 3 ml PER PROTOCOL IV ; Start 07/03/18 at 22:00 Ondansetron HCl (Zofran Inj) 4 mg Q6H PRN IV NAUSEA/VOMITING; Start 07/03/18 at 22:00 Acetaminophen (Tylenol Tab) 650 mg Q6H PRN PO .PAIN 1-3 OR TEMP; Start 07/03/18 at 22:00 Docusate Sodium (Colace) 100 mg Q12H PRN PO .CONSTIPATION; Start 07/03/18 at 22:00 Bisacodyl (Dulcolax) 5 mg DAILY PRN PO .CONSTIPATION; Start 07/03/18 at 22:00 Pantoprazole (Protonix Tab) 40 mg DAILY@06 PO Last administered on 07/05/18at 06:14; Admin Dose 40 MG; Start 07/04/18 at 06:00 Acyclovir (Zovirax) 200 mg DAILY PO Last administered on 07/05/18at 08:21; Admin Dose 200 MG; Start 07/04/18 at 09:00 Hydralazine HCl (Apresoline) 10 mg Q4H PRN IV ELEVATED BLOOD PRESSURE; Start 07/03/18 at 23:30 Metoprolol Tartrate (Lopressor) 25 mg DAILY PO Last administered on 07/05/18at 08:22; Admin Dose 25 MG; Start 07/04/18 at 09:00 Aspirin (Halfprin) 81 mg DAILY PO Last administered on 07/05/18at 08:21; Admin Dose 81 MG; Start 07/04/18 at 09:00 Atorvastatin Calcium (Lipitor) 80 mg HS PO Last administered on 07/04/18at 20:08; Admin Dose 80 MG; Start 07/03/18 at 23:30 Prednisone (Prednisone) 1 mg DAILY PO Last administered on 07/05/18at 08:21; Admin Dose 1 MG; Start 07/05/18 at 09:00 MINH BRAUN NP Jul 05, 2018 10:06
[2018-07-05] MEDS ORDERED: HEPARIN 1000 UNITS/ML 10 ML INJ IV ONE (14:00)
[2018-07-05] MEDS ORDERED: HEPARIN 1000 UNITS/ML 10 ML INJ IV PRN ×2 (14:00)
[2018-07-05] MEDS: HEPARIN 25000 UNITS/250 ML 250 ML IV SCH ×2 (15:32→23:30)
--- NOTE | 2018-07-05 15:42 | CONS ---
DATE OF ADMISSION: 07/03/2018 DATE OF CONSULTATION: 07/05/2018 REFERRING PHYSICIAN: Roselia Braun NP and Edwin Tolentino MD REASON FOR CONSULTATION: Vascular evaluation of stroke and internal carotid stenosis. HISTORY OF PRESENT ILLNESS: This is a very pleasant 63-year-old hypertensive, nondiabetic woman who was admitted with left brain right body stroke that started on actually Monday morning. Today is Tomeka rsday. She said she woke up and could not move her right side. She kind of fell down and was having trouble speaking. Her son says her speech was garbled. It improved, but later in the day, she coul d not move her right arm. It persisted through the day, Monday and so [facility] She was admitted there. She has had some improvement. She is now able to walk with a cane and she is able to move her right arm and hand, but is definitely weak compared to the left. Her son says she had an episode similar to this within the past year where she has had some trouble speaking, but it resolved without any residual. She has had a full imaging workup which shows some d iscrepancies. She had a carotid duplex scan done when she came in that showed no hemodynamically sig nificant stenosis in either extracranial carotid artery. She then had an MRA of the neck that sugges maryam severe stenosis of the left proximal internal carotid with question of thrombus. The brain MRI d oes confirm that she has had a stroke. She had acute left posterior frontal and anterior parietal an d deep white matter ischemic infarct. She is a nonsmoker. PAST MEDICAL HISTORY: Significant for hypertension, sarcoidosis and she is taking prednisone for thi s. She has some lumbar disk disease and there is a question of having patent foramen ovale, although it is not documented anywhere. MEDICATIONS: Currently consist of: 1. Prednisone. 2. Lorazepam. 3. Zovirax for some herpes simplex virus. 4. Lopressor. 5. Aspirin. 6. Protonix. 7. Apresoline. 8. Lipitor. 9. Tylenol. ALLERGIES: SHE HAS NO KNOWN DRUG ALLERGIES. PAST SURGICAL HISTORY: Significant for left hip replacement. She has had an abdominal hernia. She had some pelvic surgery, ovarian cystectomy, hemorrhoid surgery and jaw surgery. SOCIAL HISTORY: She is a nonsmoker. She does not drink or use any illicit drugs. She is a retired nurse. FAMILY HISTORY: Noncontributory. REVIEW OF SYSTEMS: She clearly has right-sided weakness with right arm and leg weakness. It improve d since the episode on Monday, but it persists. On Monday, she really could not do anything with th e right hand. Now, she is able to use it, although it is weak. She is able to walk. I watched her walk. She is not dizzy. She does have some unsteadiness but she says from weakness and she uses a c ane and is able to walk. She has got a little bit of facial drooping and her speech seems fluent. S he does not seem to have any problems with word finding and has no trouble understanding. She denies any other symptoms. She had no chest pain. No shortness of breath. No nausea, vomiting, diarrhea. No fever. No chills. No recent weight gain or weight loss. No abdominal or back pain. PHYSICAL EXAMINATION GENERAL: She is middle-aged -[place] woman. She speaks fluent [place]ian. She is in no acute distress. VITAL SIGNS: She has been afebrile. Her blood pressure is 118/60, heart rate 72, respiratory rate i s 18. She is 93% sat on room air. PERIPHERAL VASCULAR: She got 2+ carotid, radial and brachial pulses bilaterally. LUNGS: Clear. HEART: Regular rate and rhythm. ABDOMEN: Soft, nontender, nondistended. EXTREMITIES: She got 2+ femoral, popliteal, DP and PT pulses bilaterally. LABORATORY DATA: All essentially normal. She has normal kidney function. IMAGING STUDIES: Again she had a carotid duplex scan done which showed no extracranial carotid steno sis. She had a neck MRA that suggests high-grade stenosis. There is 60% to 70% significant stenosis in the left proximal internal carotid with question of thrombus. No disease on the right. Again, t he MRA of the brain is normal. The MRI of the brain shows left brain stroke. IMPRESSION: Left brain stroke with residual right-sided weakness. She clearly had a stroke clinical ly as well and documented on MRI. Imaging studies are little discordant. Carotid duplex shows no di sease. MRA suggests high-grade carotid stenosis. I am going to order a CT angiogram to better delin eate what we have got here. If she does have a significant left internal carotid stenosis, I would r ecommend carotid endarterectomy to prevent in the future of recurrent stroke. Also given the fact th at they noted a question of thrombus in the internal, I spoke to nurse practitioner, Roselia Braun and edel brody are going to start her on heparin drip. I will see her back after the CT angiogram. I discussed a ll these findings with the patient and her son at length. If she does have significant left internal carotid stenosis, we will plan for carotid endarterectomy next week and give her a little chance to recover, but I would definitely keep her on current meds and have heparin drip deep venous thrombosis protocol. Dictated By: SULAIMAN CORDOVA/FIDEL Conf#: [id number] DID#: [id number] CC: JA VEGA; VINNY MOY MD; ROSELIA BRAUN [employer]ISTRY DIRECTOR; EDWIN TOLENTINO MD; ALAN ROSADO MD;*EndCC*
[2018-07-05] MEDS ORDERED: IOHEXOL 100 ML ONE (17:17)
[2018-07-05] MEDS ORDERED: SOD CHLORIDE 0.9% 100 ML ONE (17:17)
[2018-07-05] MEDS: ATORVASTATIN 80 MG TAB PO SCH (21:20)
[2018-07-05] MEDS: LORAZEPAM 2 MG INJ IV PRN (23:10)
[2018-07-06] VITALS (11 sets, daily range): BP systolic 110–130; BP diastolic 59–69; PULSE 60–85; RESP 17–18
[2018-07-06] MEDS: PANTOPRAZOLE (EC) 40 MG TAB PO SCH (06:36)
--- NOTE | 2018-07-06 07:55 | CONS ---
Assessment/Plan Assessment/Plan Hospital Course 63 F c/ HTN who presents for evaluation of R sided weakness c/b fall...for which neurology is consulted. MRI brain confirmed an acute L fronto-parietal infarction. MRA Neck was notable for moderate to severe L cervical ICA stenosis w/ nonocclusive thrombus...CTA is negative for the same.. MRA Head was unremarkable LDL 128; A1C 6.0; RPR neg; ESR wnl P: Appreciate vascular recommendations Anticoagulation relatively contraindicated acutely given high risk of hemorrhagic transformation; defer at least 7 days post-stroke where possible.. Agree w/ lipitor daily for secondary stroke prevention PT/OT/ST as necessary BP control and other medical management per primary Will follow clinically Consultation Date/Type/Reason Admit Date/Time Jul 03, 2018 at 12:52 Type of Consult Neurology Reason for Consultation stroke Requesting Provider: ALAN ROSADO Date/Time of Note DATE: 07/06/18 TIME: 07:53 24 HR Interval Summary Free Text/Dictation Continues acute care. Seen by vascular surgery who recommended Heparin gtt for possible embolic strokes. Cardiology was consulted. Pt states that she is doing much better today. Exam Vital Signs Vitals Vital Signs Date Temp Pulse Resp B/P (MAP) Pulse Ox O2 O2 Flow FiO2 Time Delivery Rate 07/06/18 97.9 83 18 112/65 94 07:32 (81) 07/04/18 Room Air 15:56 07/03/18 2 11:17 Intake and Output 07/05/18 07/05/18 07/06/18 1515:00 23:00 07:00 IntakeIntake Total 2500 ml 488 ml BalanceBalance 2500 ml 488 ml Exam PE: Gen Appearance: No Apparent Distress HEENT: Normocephalic Cardiovascular: Regular rate Abdomen: Soft Extremities: Dry NE: The patient was alert and oriented. Language was normal. Fund of knowledge was normal. Pupils were equal and reactive to light. There was no afferent pupillary defect. Visual lopez were normal. Funduscopic examination was limited. Extra-ocular movements were full. Ptosis was absent. There was no nystagmus. Facial sensation was normal. Face was symmetric with normal strength. Hearing was intact. Palate movements were normal. Neck strength was normal. There was normal tongue bulk and speed of movement. Tone was normal. Muscle bulk was normal. I did not see fasciculations. Arms and legs were mildly weak on the right Vibration sensation was normal. Temperature and pinprick sensation was normal. Rapid alternating movements were normal. There was no dysmetria. There was no intention tremor. Gait was steady. Arm and leg reflexes were symmetric. Ch's sign was absent. Plantar responses were flexor. JA VEGA Jul 06, 2018 07:55 CAROLINE PERSON NP Jul 06, 2018 13:15
--- NOTE | 2018-07-06 08:02 | QN ---
Documentation Comment CTA neck reviewed - there is no extracranial carotid stenosis. There is no indication for surgical intervention.Her stroke is likely embolic - she needs a work up for cardioembolic source. I would recommend long term care pharmacist anticoagulation with Eliquis. She would also benefit from acute rehab if available. - I am available if there are any further vascular issues SULAIMAN VAZQUEZ MD Jul 06, 2018 08:02
[2018-07-06] MEDS: ASPIRIN (EC) 81 MG TAB PO SCH (08:33)
[2018-07-06] MEDS: ACYCLOVIR 200 MG CAP PO SCH (08:33)
[2018-07-06] MEDS: predniSONE 1 MG TAB PO SCH (08:34)
[2018-07-06] MEDS: METOPROLOL 25 MG TAB PO SCH (08:34)
--- NOTE | 2018-07-06 10:15 | PN ---
Date/Time of Note Date/Time of Note DATE: 07/06/18 TIME: 10:09 Assessment/Plan VTE Prophylaxis Risk score (from Nsg)>0 risk: 3 SCD applied (from Ns): Yes Pharmacological prophylaxis: heparin Lines/Catheters IV Catheter Type (from [facility]): Peripheral IV Urinary Cath still in place: No Assessment/Plan Hospital Course SUBJECTIVE: No acute distress. Still having mild right-sided weakness but improved. OBJECTIVE: Vital signs-see below PHYSICAL EXAM: Constitutional: Well-developed, adequately built, lying in bed comfortably. Psych: nl mood/affect, no complaints Head: atraumatic, normocephalic Eyes: nl conjunctiva, nl sclera ENMT: mucosa pink and moist, nl external ears & nose Neck: non-tender, supple Respiratory: clear to auscultation, normal air movement Cardiovascular: nl pulses, regular rate and rhythm Gastrointestinal: non-tender, soft, bowel sounds active in all 4 quadrants. Musculoskeletal/extremities: +Right slide w/mild weakness. Motor strength 5/5. nl extremities to inspection,Normal pulses,no cyanosis, no edema. Neurological: Alert oriented 3,speech slightly slurred, nl strength Skin: nl turgor ASSESSMENT/PLAN:3-year-old female with history of Migraines,GERD, HSV, osteoarthritis, sarcoidosis, admitted with right-sided weakness and slurred speech,found to have acute stroke. 1.Acute cerebrovascular accident W/ left ICA occlusion -mri: Acute left posterior frontal and anterior parietal periventricular and deep white matter ischemic infarct. -Question embolic stroke-> cardiology consult requested for further evaluation. -Continue anticoagulation per vascular recommendations-> we will repeat CT to rule out hemorrhagic conversion. -cont. Aspirin/statin -PT/OT/ST 2.Left ICA stenosis shown in MRI neck. -This is now not shown in CTA as such there is no further vascular intervention indicated per vascular surgeon. Recommended lifelong anticoagulation in light of possible embolic stroke. -cont.antiplatelet/statin 3. Sarcoidosis - Continue prednisone,PPI 4. Hypertension -stable -cont.antihypertensives 5. HSV -Currently she does not have any lesions. -on acyclovir prophylaxis 6.Lumbar disc prolapse, chronic -no acute issues 7.Migraine headaches -No acute issues -PRN Pain meds DVT GI prophylaxis: SCDs, home PPI Dispo: As per vascular surgery, there is no carotid stenosis shortening CTA, as such she does not need any vascular intervention. Recommended lifelong anticoagulation and further workup for embolic stroke rule out. Follow-up cardiology recommendations. Once medical workup is completed, we will also place inpatient rehab consult if she is not a candidate for that. patient was seen in collaboration with Dr. Yoon. Result Diagram: 07/05/18 1423 07/04/18 0602 Results 24hrs Laboratory Tests Test 07/05/18 11:42 07/05/18 14:23 07/05/18 21:13 07/06/18 05:17 Erythrocyte 24 Sedimentation Rate Rapid Plasma Reagin NONREACTIVE White Blood Count 5.5 Red Blood Count 4.47 Hemoglobin 11.5 L Hematocrit 36.4 L Mean Corpuscular Volume 81.4 L Mean Corpuscular 25.7 L Hemoglobin Mean Corpuscular 31.6 L Hemoglobin Concent Red Cell Distribution 14.4 Width Platelet Count 275 Mean Platelet Volume 8.9 Immature Granulocytes % 0.200 Neutrophils % 50.6 Lymphocytes % 39.4 Monocytes % 8.0 Eosinophils % 1.3 Basophils % 0.5 Nucleated Red Blood 0.0 Cells % Immature Granulocytes # 0.010 Neutrophils # 2.8 Lymphocytes # 2.2 Monocytes # 0.4 Eosinophils # 0.1 Basophils # 0.0 Nucleated Red Blood 0.0 Cells # Prothrombin Time 13.2 Prothrombin Time Ratio 1.0 INR International 0.99 Normalized Ratio Activated 28.8 50.8 H > 180.0 *H Partial Thromboplast Time Exam/Review of Systems Exam Vitals Vital Signs Date Temp Pulse Resp B/P (MAP) Pulse Ox O2 O2 Flow FiO2 Time Delivery Rate 07/06/18 76 08:00 07/06/18 97.9 18 112/65 94 07:32 (81) 07/04/18 Room Air 15:56 07/03/18 2 11:17 Intake and Output 07/05/18 07/05/18 07/06/18 1515:00 23:00 07:00 IntakeIntake Total 2500 ml 488 ml BalanceBalance 2500 ml 488 ml Results Results 24hrs Laboratory Tests Test 07/05/18 11:42 07/05/18 14:23 07/05/18 21:13 07/06/18 05:17 Erythrocyte 24 Sedimentation Rate Rapid Plasma Reagin NONREACTIVE White Blood Count 5.5 Red Blood Count 4.47 Hemoglobin 11.5 L Hematocrit 36.4 L Mean Corpuscular Volume 81.4 L Mean Corpuscular 25.7 L Hemoglobin Mean Corpuscular 31.6 L Hemoglobin Concent Red Cell Distribution 14.4 Width Platelet Count 275 Mean Platelet Volume 8.9 Immature Granulocytes % 0.200 Neutrophils % 50.6 Lymphocytes % 39.4 Monocytes % 8.0 Eosinophils % 1.3 Basophils % 0.5 Nucleated Red Blood 0.0 Cells % Immature Granulocytes # 0.010 Neutrophils # 2.8 Lymphocytes # 2.2 Monocytes # 0.4 Eosinophils # 0.1 Basophils # 0.0 Nucleated Red Blood 0.0 Cells # Prothrombin Time 13.2 Prothrombin Time Ratio 1.0 INR International 0.99 Normalized Ratio Activated 28.8 50.8 H > 180.0 *H Partial Thromboplast Time Medications Medication Current Medications IV Flush (NS 3 ml) 3 ml PER PROTOCOL IV ; Start 07/03/18 at 22:00 Ondansetron HCl (Zofran Inj) 4 mg Q6H PRN IV NAUSEA/VOMITING; Start 07/03/18 at 22:00 Acetaminophen (Tylenol Tab) 650 mg Q6H PRN PO .PAIN 1-3 OR TEMP; Start 07/03/18 at 22:00 Docusate Sodium (Colace) 100 mg Q12H PRN PO .CONSTIPATION; Start 07/03/18 at 22:00 Bisacodyl (Dulcolax) 5 mg DAILY PRN PO .CONSTIPATION; Start 07/03/18 at 22:00 Pantoprazole (Protonix Tab) 40 mg DAILY@06 PO Last administered on 07/06/18at 06:36; Admin Dose 40 MG; Start 07/04/18 at 06:00 Acyclovir (Zovirax) 200 mg DAILY PO Last administered on 07/06/18at 08:33; Admin Dose 200 MG; Start 07/04/18 at 09:00 Hydralazine HCl (Apresoline) 10 mg Q4H PRN IV ELEVATED BLOOD PRESSURE; Start 07/03/18 at 23:30 Metoprolol Tartrate (Lopressor) 25 mg DAILY PO Last administered on 07/06/18at 08:34; Admin Dose 25 MG; Start 07/04/18 at 09:00 Aspirin (Halfprin) 81 mg DAILY PO Last administered on 07/06/18at 08:33; Admin Dose 81 MG; Start 07/04/18 at 09:00 Atorvastatin Calcium (Lipitor) 80 mg HS PO Last administered on 07/05/18 21:20; Admin Dose 80 MG; Start 07/03/18 at 23:30 Prednisone (Prednisone) 1 mg DAILY PO Last administered on 07/06/18 08:34; Admin Dose 1 MG; Start 07/05/18 at 09:00 Heparin Sodium (Porcine) (Heparin (1000 Units/ml)) 7,100 unit PER PROTOCOL PRN IV aPTT<47; Start 07/05/18 at 14:00 Heparin Sodium (Porcine) (Heparin (1000 Units/ml)) 3,600 unit PER PROTOCOL PRN IV aPTT<47-57 Last administered on 07/05/18 23:30; Admin Dose 3,600 UNIT; Start 07/05/18 at 14:00 Heparin Sodium (Porcine) 250 ml @ 16.02 mls/ hr PER PROTOCOL IV Last administered on 07/05/18 23:30; Admin Dose 18.5 MLS/HR; Start 07/05/18 at 14:00 Lorazepam (Ativan) 0.5 mg QHS PRN IV INSOMNIA Last administered on 07/05/18 23:10; Admin Dose 0.5 MG; Start 07/05/18 at 23:00 MINH BRAUN NP Jul 06, 2018 10:15
[2018-07-06] MEDS: HEPARIN 25000 UNITS/250 ML 250 ML IV SCH (14:22)
--- NOTE | 2018-07-06 15:07 | QN ---
Documentation Comment Repeat Brain CT showed interval evolution of known left frontal and parietal deep white matter infarct with increase hypodensity in this region. No evidence of hemorrhage is seen. No significant mass effect is seen. Increased hypodensity with evaluation is concerning. Discussed this finding with neurologist and we will stop heparin drip Continue watching neurological status closely. Case discussed with Dr. Yoon. MINH BRAUN NP Jul 06, 2018 15:07
--- NOTE | 2018-07-06 15:46 | CONS ---
Assessment/Plan Assessment/Plan Hospital Course (Demo Recall) Acute CVA: Though cardioembolic is possible, workup so far including bubble study and tele monitoring are unremarkable. EF is preserved. The fact that CTA shows possible old dissection/vasculitis or FMD and MRA initially showed thrombus which no longer is seen is concerning for a vascular thrombotic process in the carotid artery itself. Anticoagulation is appropriate with timing to be determined by neurology to avoid hemorrhagic conversion. Outpt rheumatologic workup is also necessary. I do not think NINOSKA would filter changer at this time. Sarcoidosis HTN -timing of anticoagulation per neurology -outpt rheum workup -ASA, lipitor -metoprolol Consultation Date/Type/Reason Admit Date/Time Jul 03, 2018 at 12:52 Date of Consultation: Jul 06, 2018 Type of Consult Cardiology Reason for Consultation Eval for cardioembolic stroke Requesting Provider: MINH BRAUN NP Date/Time of Note DATE: 07/06/18 TIME: 15:38 Hx of Present Illness 63 yo F with a h/o sarcoidosis on prednisone, HTN, who presented with acute right sided weakness. Workup eventually revealed left sided acute CVA. MRA initially showed left carotid thrombus and stenosis. Subsequent CTA did not show it but showed possible healed dissection or fibromuscular dysplasia. She notes that she was seeing a photographer still in the past for what she called a "hole in the heart" but then called it a murmur. Bubble study here is negative. No arrh ythmias on tele. No known cardiac or vascular disease. She feels that her deficits have almost resolved per hPI Past Medical History per hPI Home Meds Active Scripts Hydrocodone/Acetaminophen (Shafer 5-325 Tablet) 1 Each Tablet, 1 TAB PO Q6H PRN for PAIN, #14 TAB Prov:AKBAR BANKS MD 06/06/18 Reported Medications Ergocalciferol (Vitamin D2) (VITAMIN D2) 50,000 Unit Capsule, 22228 UNIT PO Q SUN, CAP 07/03/18 Prednisone* (Prednisone*) 1 Mg Tablet, 2 MG PO DAILY, TAB 07/03/18 Omeprazole* (Omeprazole*) 20 Mg Capsule.dr, 20 MG PO DAILY, #30 CAP 07/03/18 Metoprolol Tartrate* (Lopressor*) 25 Mg Tab, 25 MG PO DAILY, #60 TAB 07/03/18 Zolpidem Tartrate* (Zolpidem Tartrate*) 10 Mg Tablet, 10 MG PO QHS PRN for INSOMNIA, #30 TAB 07/03/18 Acyclovir* (Acyclovir*) 200 Mg Capsule, 200 MG PO DAILY, CAP 07/03/18 Metoclopramide* (Reglan*) 5 Mg Tablet, 5 MG PO DAILY BEFORE MEALS, TAB 07/03/18 Cyclobenzaprine Hcl* (Cyclobenzaprine Hcl*) 10 Mg Tablet, 10 MG PO QHS, #60 TAB 07/03/18 Doxepin Hcl* (Doxepin Hcl*) 25 Mg Capsule, 50 MG PO HS, CAP 07/03/18 Discontinued Scripts Hydrocodone/Acetaminophen (Shafer 5-325 Tablet) 1 Each Tablet, 1 TAB PO Q6H PRN for PAIN, #10 TAB Prov:AKBAR BANKS MD 08/29/17 Medications Current Medications IV Flush (NS 3 ml) 3 ml PER PROTOCOL IV ; Start 07/03/18 at 22:00 Ondansetron HCl (Zofran Inj) 4 mg Q6H PRN IV NAUSEA/VOMITING; Start 07/03/18 at 22:00 Acetaminophen (Tylenol Tab) 650 mg Q6H PRN PO .PAIN 1-3 OR TEMP; Start 07/03/18 at 22:00 Docusate Sodium (Colace) 100 mg Q12H PRN PO .CONSTIPATION; Start 07/03/18 at 22:00 Bisacodyl (Dulcolax) 5 mg DAILY PRN PO .CONSTIPATION; Start 07/03/18 at 22:00 Pantoprazole (Protonix Tab) 40 mg DAILY@06 PO Last administered on 07/06/18at 06:36; Admin Dose 40 MG; Start 07/04/18 at 06:00 Acyclovir (Zovirax) 200 mg DAILY PO Last administered on 07/06/18at 08:33; Admin Dose 200 MG; Start 07/04/18 at 09:00 Hydralazine HCl (Apresoline) 10 mg Q4H PRN IV ELEVATED BLOOD PRESSURE; Start 07/03/18 at 23:30 Metoprolol Tartrate (Lopressor) 25 mg DAILY PO Last administered on 07/06/18at 08:34; Admin Dose 25 MG; Start 07/04/18 at 09:00 Aspirin (Halfprin) 81 mg DAILY PO Last administered on 07/06/18at 08:33; Admin Dose 81 MG; Start 07/04/18 at 09:00 Atorvastatin Calcium (Lipitor) 80 mg HS PO Last administered on 07/05/18at 21:20; Admin Dose 80 MG; Start 07/03/18 at 23:30 Prednisone (Prednisone) 1 mg DAILY PO Last administered on 07/06/18at 08:34; Admin Dose 1 MG; Start 07/05/18 at 09:00 Lorazepam (Ativan) 0.5 mg QHS PRN IV INSOMNIA Last administered on 07/05/18at 23:10; Admin Dose 0.5 MG; Start 07/05/18 at 23:00 Allergies: Coded Allergies: oxycodone (Verified Allergy, Unknown, 07/03/18) Social History Alcohol Use: none Smoking Status: Never smoker Drug Use: none Exam/Review of Systems Vital Signs Vitals Vital Signs Date Temp Pulse Resp B/P (MAP) Pulse Ox O2 O2 Flow FiO2 Time Delivery Rate 07/06/18 97.9 73 18 127/69 95 15:13 (88) 07/04/18 Room Air 15:56 07/03/18 2 11:17 Intake and Output 07/05/18 07/05/18 07/06/18 1515:00 23:00 07:00 IntakeIntake Total 2500 ml 488 ml BalanceBalance 2500 ml 488 ml Exam Constitutional: alert, oriented Psych: no complaints, nl mood/affect Head: normocephalic, atraumatic Neck: supple; No jvd Respiratory: clear to auscultation; No crackles/rales Cardiovascular: regular rate and rhythm, systolic murmur (2/6 ADA); No edema Gastrointestinal: soft, non-tender Neurological: nl mental status, nl speech Labs Result Diagram: 07/05/18 1423 07/04/18 0602 Results 24hrs Laboratory Tests Test 07/05/18 21:13 07/06/18 05:17 07/06/18 09:34 07/06/18 12:05 Activated 50.8 H > 180.0 *H > 180.0 *H 65.2 H Partial Thromboplast Time Medications Medications Current Medications IV Flush (NS 3 ml) 3 ml PER PROTOCOL IV ; Start 07/03/18 at 22:00 Ondansetron HCl (Zofran Inj) 4 mg Q6H PRN IV NAUSEA/VOMITING; Start 07/03/18 at 22:00 Acetaminophen (Tylenol Tab) 650 mg Q6H PRN PO .PAIN 1-3 OR TEMP; Start 07/03/18 at 22:00 Docusate Sodium (Colace) 100 mg Q12H PRN PO .CONSTIPATION; Start 07/03/18 at 22 :00 Bisacodyl (Dulcolax) 5 mg DAILY PRN PO .CONSTIPATION; Start 07/03/18 at 22:00 Pantoprazole (Protonix Tab) 40 mg DAILY@06 PO Last administered on 07/06/18 06:36; Admin Dose 40 MG; Start 07/04/18 at 06:00 Acyclovir (Zovirax) 200 mg DAILY PO Last administered on 07/06/18 08:33; Admin Dose 200 MG; Start 07/04/18 at 09:00 Hydralazine HCl (Apresoline) 10 mg Q4H PRN IV ELEVATED BLOOD PRESSURE; Start 07/03/18 at 23:30 Metoprolol Tartrate (Lopressor) 25 mg DAILY PO Last administered on 07/06/18 08:34; Admin Dose 25 MG; Start 07/04/18 at 09:00 Aspirin (Halfprin) 81 mg DAILY PO Last administered on 07/06/18 08:33; Admin Dose 81 MG; Start 07/04/18 at 09:00 Atorvastatin Calcium (Lipitor) 80 mg HS PO Last administered on 07/05/18 21:20; Admin Dose 80 MG; Start 07/03/18 at 23:30 Prednisone (Prednisone) 1 mg DAILY PO Last administered on 07/06/18 08:34; Admin Dose 1 MG; Start 07/05/18 at 09:00 Lorazepam (Ativan) 0.5 mg QHS PRN IV INSOMNIA Last administered on 07/05/18 23:10; Admin Dose 0.5 MG; Start 07/05/18 at 23:00 VILMA SAMANIEGO Jul 06, 2018 15:45
[2018-07-06] MEDS: ATORVASTATIN 80 MG TAB PO SCH (21:24)
[2018-07-07] VITALS (9 sets, daily range): BP systolic 110–127; BP diastolic 57–78; PULSE 70–89; RESP 15–20
[2018-07-07] MEDS: LORAZEPAM 2 MG INJ IV PRN (00:57)
[2018-07-07] MEDS: PANTOPRAZOLE (EC) 40 MG TAB PO SCH (05:03)
[2018-07-07] MEDS: ACYCLOVIR 200 MG CAP PO SCH (08:32)
[2018-07-07] MEDS: ASPIRIN (EC) 81 MG TAB PO SCH (08:32)
[2018-07-07] MEDS: METOPROLOL 25 MG TAB PO SCH (08:32)
[2018-07-07] MEDS: predniSONE 1 MG TAB PO SCH (08:32)
--- NOTE | 2018-07-07 10:59 | CONS ---
Assessment/Plan Assessment/Plan Hospital Course 63 F c/ HTN who presents for evaluation of R sided weakness c/b fall...for which neurology is consulted. MRI brain confirmed an acute L fronto-parietal infarction. MRA Neck was notable for moderate to severe L cervical ICA stenosis w/ nonocclusive thrombus...CTA is negative for the same.. MRA Head was unremarkable TTE is unrevealing LDL 128; A1C 6.0; RPR neg; ESR wnl P: Rec asa w/ lipitor daily for secondary stroke prevention in the acute setting Appreciate cardiology recs re: utility of NINOSKA.. Agree w/ rheumatologic workup, which may be done as an outpatient PT/OT/ST as necessary BP control and other medical management per primary Will follow clinically Consultation Date/Type/Reason Admit Date/Time Jul 03, 2018 at 12:52 Type of Consult Neurology Reason for Consultation stroke Requesting Provider: MINH BRAUN NP Date/Time of Note DATE: 07/07/18 TIME: 10:55 24 HR Interval Summary Free Text/Dictation States weakness is improving some.. Exam Vital Signs Vitals Vital Signs Date Temp Pulse Resp B/P (MAP) Pulse Ox O2 O2 Flow FiO2 Time Delivery Rate 07/07/18 75 08:01 07/07/18 98.2 15 127/71 96 Room Air 07:51 (89) 07/03/18 2 11:17 Intake and Output 07/06/18 07/06/18 07/07/18 1515:00 23:00 07:00 IntakeIntake Total 130 ml 15.5 ml 440 ml BalanceBalance 130 ml 15.5 ml 440 ml Exam PE: Gen Appearance: No Apparent Distress HEENT: Normocephalic Cardiovascular: Regular rate Lungs: Clear bilaterally Abdomen: Soft Extremities: Dry NE: The patient was alert and oriented, able to spell WORLD backwards, and able to recall all three words after a five minute delay. Language was normal. Fund of knowledge was normal. Pupils were equal and reactive to light. There was no afferent pupillary defect. Visual lopez were normal. Funduscopic examination was limited. Extra-ocular movements were full. Ptosis was absent. There was no nystagmus. Facial sensation was normal. Face was asymmetric at rest, with normal activation.. Hearing was intact. Palate movements were normal. Neck strength was normal. There was normal tongue bulk and speed of movement. Tone was normal. Muscle bulk was normal. I did not see fasciculations. Arms and legs were mildly weak on the right. Vibration sensation was normal. Temperature and pinprick sensation was normal. Rapid alternating movements were normal. There was no dysmetria. There was no intention tremor. Gait was deferred due to bedrest. Arm and leg reflexes were symmetric. Ch's sign was absent. Plantar responses were flexor. JA VEGA Jul 07, 2018 10:59
--- NOTE | 2018-07-07 11:49 | PN ---
Date/Time of Note Date/Time of Note DATE: 07/07/18 TIME: 11:46 Assessment/Plan VTE Prophylaxis Risk score (from Ns)>0 risk: 3 SCD applied (from Ns): Yes Pharmacological prophylaxis: heparin Lines/Catheters IV Catheter Type (from Nrs): Peripheral IV Urinary Cath still in place: No Assessment/Plan Problems: (1) CVA (cerebral vascular accident) Status: Acute Comment: The workup for a cause of this is been extensive including echocardiog hair with bubble study, MR angiography and CT angiography. The concerned that this may represent a hypercoagulable state versus a vasculitis as a valvular always get the blood test started for that. Neurology recommends formalized anticoagulation starting 7 days after the acute event. That would be July 10. I would like the input from cardiology and neurology regarding which agent the most prefer. Qualifiers: CVA mechanism: unspecified Qualified Codes: I63.9 - Cerebral infarction, unspecified (2) Hyperlipidemia Status: Chronic Comment: Full dose statin therapy Qualifiers: Hyperlipidemia type: pure hypercholesterolemia Qualified Codes: E78.00 - Pure hypercholesterolemia, unspecified (3) Sarcoidosis Status: Chronic Comment: He is managed by a physician in [facility]. She continues on her low-dose prednisone. (4) Migraine syndrome Status: Chronic Comment: Noted is not active at this time. I do not believe the CVA is a sequelae of migraine (5) Lumbar disc disease Status: Chronic Comment: Noted. 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 Please note that the prophylactic therapy dose for this was slightly different I have adjusted the medicines (7) HSV-2 seropositive Status: Chronic Comment: As above Result Diagram: 07/07/18 0548 07/07/18 0548 Results 24hrs Laboratory Tests Test 07/06/18 12:05 07/07/18 05:48 Activated Partial Thromboplast Time 65.2 H 28.9 White Blood Count 6.1 Red Blood Count 4.58 Hemoglobin 11.8 L Hematocrit 37.4 Mean Corpuscular Volume 81.7 L Mean Corpuscular Hemoglobin 25.8 L Mean Corpuscular Hemoglobin Concent 31.6 L Red Cell Distribution Width 14.3 Platelet Count 286 Mean Platelet Volume 9.2 Immature Granulocytes % 0.300 Neutrophils % 38.8 L Lymphocytes % 50.4 Monocytes % 8.7 Eosinophils % 1.1 Basophils % 0.7 Nucleated Red Blood Cells % 0.0 Immature Granulocytes # 0.020 Neutrophils # 2.4 Lymphocytes # 3.1 H Monocytes # 0.5 Eosinophils # 0.1 Basophils # 0.0 Nucleated Red Blood Cells # 0.0 Sodium Level 140 Potassium Level 4.4 Chloride Level 106 Carbon Dioxide Level 24 Anion Gap 10 Blood Urea Nitrogen 11 Creatinine 0.81 Est Glomerular Filtrat Rate mL/min > 60 Glucose Level 109 Calcium Level 10.1 Subjective 24 Hr Interval Summary Free Text/Dictation Patient is doing well at this time. Physical therapy is working with her. No new neurologic symptoms. Constitutional: no complaints (No fevers chills or sweats) Respiratory: no complaints Cardiovascular: no complaints Gastrointestinal: no complaints Genitourinary: no complaints Exam/Review of Systems Exam Vitals Vital Signs Date Temp Pulse Resp B/P (MAP) Pulse Ox O2 O2 Flow FiO2 Time Delivery Rate 07/07/18 75 08:01 07/07/18 98.2 15 127/71 96 Room Air 07:51 (89) 07/03/18 2 11:17 Intake and Output 07/06/18 07/06/18 07/07/18 1515:00 23:00 07:00 IntakeIntake Total 130 ml 15.5 ml 440 ml BalanceBalance 130 ml 15.5 ml 440 ml Constitutional: alert, oriented Respiratory: clear to auscultation, normal air movement Cardiovascular: regular rate and rhythm, nl pulses Gastrointestinal: soft, nl liver, spleen, non-tender Results Results 24hrs Laboratory Tests Test 07/06/18 12:05 07/07/18 05:48 Activated Partial Thromboplast Time 65.2 H 28.9 White Blood Count 6.1 Red Blood Count 4.58 Hemoglobin 11.8 L Hematocrit 37.4 Mean Corpuscular Volume 81.7 L Mean Corpuscular Hemoglobin 25.8 L Mean Corpuscular Hemoglobin Concent 31.6 L Red Cell Distribution Width 14.3 Platelet Count 286 Mean Platelet Volume 9.2 Immature Granulocytes % 0.300 Neutrophils % 38.8 L Lymphocytes % 50.4 Monocytes % 8.7 Eosinophils % 1.1 Basophils % 0.7 Nucleated Red Blood Cells % 0.0 Immature Granulocytes # 0.020 Neutrophils # 2.4 Lymphocytes # 3.1 H Monocytes # 0.5 Eosinophils # 0.1 Basophils # 0.0 Nucleated Red Blood Cells # 0.0 Sodium Level 140 Potassium Level 4.4 Chloride Level 106 Carbon Dioxide Level 24 Anion Gap 10 Blood Urea Nitrogen 11 Creatinine 0.81 Est Glomerular Filtrat Rate mL/min > 60 Glucose Level 109 Calcium Level 10.1 Medications Medication Current Medications IV Flush (NS 3 ml) 3 ml PER PROTOCOL IV ; Start 07/03/18 at 22:00 Ondansetron HCl (Zofran Inj) 4 mg Q6H PRN IV NAUSEA/VOMITING; Start 07/03/18 at 22:00 Acetaminophen (Tylenol Tab) 650 mg Q6H PRN PO .PAIN 1-3 OR TEMP; Start 07/03/18 at 22:00 Docusate Sodium (Colace) 100 mg Q12H PRN PO .CONSTIPATION; Start 07/03/18 at 22:00 Bisacodyl (Dulcolax) 5 mg DAILY PRN PO .CONSTIPATION; Start 07/03/18 at 22:00 Pantoprazole (Protonix Tab) 40 mg DAILY@06 PO Last administered on 07/07/18 05:03; Admin Dose 40 MG; Start 07/04/18 at 06:00 Acyclovir (Zovirax) 200 mg DAILY PO Last administered on 07/07/18 08:32; Admin Dose 200 MG; Start 07/04/18 at 09:00 Hydralazine HCl (Apresoline) 10 mg Q4H PRN IV ELEVATED BLOOD PRESSURE; Start 07/03/18 at 23:30 Metoprolol Tartrate (Lopressor) 25 mg DAILY PO Last administered on 07/07/18 08:32; Admin Dose 25 MG; Start 07/04/18 at 09:00 Aspirin (Halfprin) 81 mg DAILY PO Last administered on 07/07/18 08:32; Admin Dose 81 MG; Start 07/04/18 at 09:00 Atorvastatin Calcium (Lipitor) 80 mg HS PO Last administered on 07/06/18 21:24; Admin Dose 80 MG; Start 07/03/18 at 23:30 Prednisone (Prednisone) 1 mg DAILY PO Last administered on 07/07/18 08:32; Admin Dose 1 MG; Start 07/05/18 at 09:00 Lorazepam (Ativan) 0.5 mg QHS PRN IV INSOMNIA Last administered on 4/6/19at 00:57; Admin Dose 0.5 MG; Start 07/05/18 at 23:00 JARETT LOWRY MD Jul 07, 2018 11:49
--- NOTE | 2018-07-07 14:07 | CONS ---
Assessment/Plan Assessment/Plan Hospital Course (Demo Recall) Acute CVA: Though cardioembolic is possible, workup so far including bubble study and tele monitoring are unremarkable. EF is preserved. The fact that CTA shows possible old dissection/vasculitis or FMD and MRA initially showed thrombus which no longer is seen is concerning for a vascular thrombotic process in the carotid artery itself. Anticoagulation is appropriate with timing to be determined by neurology to avoid hemorrhagic conversion. Outpt rheumatologic workup is also necessary. I do not think NINOSKA would record changer at this time. Sarcoidosis HTN -timing of anticoagulation per neurology. When able, can start Eliquis 5mg BID or Xarelto 20mg daily -ASA (can stop once anticoagulation started) -lipitor -metoprolol Consultation Date/Type/Reason Admit Date/Time Jul 03, 2018 at 12:52 Initial Consult Date 07/06/18 Type of Consult Cardiology Requesting Provider: MINH BRAUN NP Date/Time of Note DATE: 07/07/18 TIME: 14:05 24 HR Interval Summary Free Text/Dictation No events. No arrhythmias. Exam/Review of Systems Vital Signs Vitals Vital Signs Date Temp Pulse Resp B/P (MAP) Pulse Ox O2 O2 Flow FiO2 Time Delivery Rate 07/07/18 98.7 89 15 115/78 99 Room Air 12:27 (90) 07/03/18 2 11:17 Intake and Output 07/06/18 07/06/18 07/07/18 1515:00 23:00 07:00 IntakeIntake Total 130 ml 15.5 ml 440 ml BalanceBalance 130 ml 15.5 ml 440 ml Exam Constitutional: alert, oriented Psych: no complaints, nl mood/affect Head: normocephalic, atraumatic Neck: No jvd Respiratory: clear to auscultation; No crackles/rales Cardiovascular: regular rate and rhythm; No edema Gastrointestinal: soft, non-tender Neurological: nl mental status, nl speech Labs Result Diagram: 07/07/1848 07/07/18 0548 Results 24hrs Laboratory Tests Test 07/07/18 05:48 White Blood Count 6.1 Red Blood Count 4.58 Hemoglobin 11.8 L Hematocrit 37.4 Mean Corpuscular Volume 81.7 L Mean Corpuscular Hemoglobin 25.8 L Mean Corpuscular Hemoglobin Concent 31.6 L Red Cell Distribution Width 14.3 Platelet Count 286 Mean Platelet Volume 9.2 Immature Granulocytes % 0.300 Neutrophils % 38.8 L Lymphocytes % 50.4 Monocytes % 8.7 Eosinophils % 1.1 Basophils % 0.7 Nucleated Red Blood Cells % 0.0 Immature Granulocytes # 0.020 Neutrophils # 2.4 Lymphocytes # 3.1 H Monocytes # 0.5 Eosinophils # 0.1 Basophils # 0.0 Nucleated Red Blood Cells # 0.0 Activated Partial Thromboplast Time 28.9 Sodium Level 140 Potassium Level 4.4 Chloride Level 106 Carbon Dioxide Level 24 Anion Gap 10 Blood Urea Nitrogen 11 Creatinine 0.81 Est Glomerular Filtrat Rate mL/min > 60 Glucose Level 109 Calcium Level 10.1 Medications Medications Current Medications IV Flush (NS 3 ml) 3 ml PER PROTOCOL IV ; Start 07/03/18 at 22:00 Ondansetron HCl (Zofran Inj) 4 mg Q6H PRN IV NAUSEA/VOMITING; Start 07/03/18 at 22:00 Acetaminophen (Tylenol Tab) 650 mg Q6H PRN PO .PAIN 1-3 OR TEMP; Start 07/03/18 at 22:00 Docusate Sodium (Colace) 100 mg Q12H PRN PO .CONSTIPATION; Start 07/03/18 at 22:00 Bisacodyl (Dulcolax) 5 mg DAILY PRN PO .CONSTIPATION; Start 07/03/18 at 22:00 Pantoprazole (Protonix Tab) 40 mg DAILY@06 PO Last administered on 07/07/18at 05:03; Admin Dose 40 MG; Start 07/04/18 at 06:00 Hydralazine HCl (Apresoline) 10 mg Q4H PRN IV ELEVATED BLOOD PRESSURE; Start 07/03/18 at 23:30 Metoprolol Tartrate (Lopressor) 25 mg DAILY PO Last administered on 07/07/18at 08:32; Admin Dose 25 MG; Start 07/04/18 at 09:00 Aspirin (Halfprin) 81 mg DAILY PO Last administered on 07/07/18at 08:32; Admin Dose 81 MG; Start 07/04/18 at 09:00 Atorvastatin Calcium (Lipitor) 80 mg HS PO Last administered on 07/06/18at 21:24; Admin Dose 80 MG; Start 07/03/18 at 23:30 Prednisone (Prednisone) 1 mg DAILY PO Last administered on 07/07/18at 08:32; Admin Dose 1 MG; Start 07/05/18 at 09:00 Lorazepam (Ativan) 0.5 mg QHS PRN IV INSOMNIA Last administered on 07/07/18at 00:57; Admin Dose 0.5 MG; Start 07/05/18 at 23:00 Acyclovir (Zovirax) 400 mg DAILY PO ; Start 07/08/18 at 09:00 VILMA SAMANIEGO Jul 07, 2018 14:07
[2018-07-07] MEDS: ATORVASTATIN 80 MG TAB PO SCH (23:02)
[2018-07-08] VITALS (7 sets, daily range): BP systolic 112–127; BP diastolic 59–68; PULSE 73–89; RESP 14–20
[2018-07-08] MEDS: LORAZEPAM 2 MG INJ IV PRN ×2 (00:50→23:45)
[2018-07-08] MEDS: PANTOPRAZOLE (EC) 40 MG TAB PO SCH (05:16)
[2018-07-08] MEDS ORDERED: ACYCLOVIR 200 MG CAP PO SCH (09:00)
--- NOTE | 2018-07-08 09:06 | PN ---
Date/Time of Note Date/Time of Note DATE: 07/08/18 TIME: 09:04 Assessment/Plan VTE Prophylaxis Risk score (from Ns)>0 risk: 3 [place] [facility] [place] contraindicated: low risk/ambulating Pharmacological prophylaxis: heparin Pharm contraindication: low risk/ambulating Lines/Catheters IV [facility]from [facility] Saline Lock Urinary Cath still in place: No Assessment/Plan Problems: (1) Acute CVA (cerebrovascular accident) Status: Acute Comment: Patient at this time is recuperating well and doing well physical therapy. Case management and child welfare social worker working to verify that we have full resources for her to be discharged home. (2) Sarcoidosis Status: Chronic Comment: Continue with prednisone therapy. (3) Migraine syndrome Status: Chronic Comment: Stable at this time, I do not believe that the stroke was a complicated migraine (4) Lumbar disc disease Status: Chronic Comment: Noted and stable (5) Hyperlipidemia Status: Chronic Comment: On full dose statin therapy Qualifiers: Hyperlipidemia type: pure hypercholesterolemia Qualified Codes: E78.00 - Pure hypercholesterolemia, unspecified Result Diagram: 07/08/18 0442 07/08/18 0443 Results 24hrs Laboratory Tests Test 07/08/18 04:42 07/08/18 04:43 White Blood Count 7.1 Red Blood Count 4.60 Hemoglobin 11.9 L Hematocrit 36.9 L Mean Corpuscular Volume 80.2 L Mean Corpuscular Hemoglobin 25.9 L Mean Corpuscular Hemoglobin Concent 32.2 Red Cell Distribution Width 14.4 Platelet Count 267 Mean Platelet Volume 9.6 Immature Granulocytes % 0.100 Neutrophils % 39.3 Lymphocytes % 51.8 H Monocytes % 7.4 Eosinophils % 0.8 Basophils % 0.6 Nucleated Red Blood Cells % 0.0 Immature Granulocytes # 0.010 Neutrophils # 2.8 Lymphocytes # 3.7 H Monocytes # 0.5 Eosinophils # 0.1 Basophils # 0.0 Nucleated Red Blood Cells # 0.0 Erythrocyte Sedimentation Rate 22 Activated Partial Thromboplast Time 25.7 Sodium Level 139 Potassium Level 4.1 Chloride Level 103 Carbon Dioxide Level 24 Anion Gap 12 Blood Urea Nitrogen 14 Creatinine 0.80 Est Glomerular Filtrat Rate mL/min > 60 Glucose Level 102 Calcium Level 9.9 C-Reactive Protein High Sensitivity 1.30 H Subjective 24 Hr Interval Summary Free Text/Dictation Patient reports that this time that she is doing well with no new complaints Constitutional: no complaints Respiratory: no complaints Cardiovascular: no complaints Gastrointestinal: no complaints Genitourinary: no complaints Neurologic: no complaints (No changes no new finding) Exam/Review of Systems Exam Vitals Vital Signs Date Temp Pulse Resp B/P (MAP) Pulse Ox O2 O2 Flow FiO2 Time Delivery Rate 07/08/18 98.0 83 14 112/59 96 Room Air 07:22 (76) Intake and Output 07/07/18 07/07/18 07/08/18 1515:00 23:00 07:00 IntakeIntake Total 380 ml 350 ml 640 ml BalanceBalance 380 ml 350 ml 640 ml Constitutional: alert, oriented Respiratory: clear to auscultation, normal air movement Cardiovascular: regular rate and rhythm, nl pulses Gastrointestinal: soft, nl liver, spleen, non-tender Neurological: CHAR FILTER OPERATOR II-XII intact, nl mental status, nl speech Results Results 24hrs Laboratory Tests Test 07/08/18 04:42 07/08/18 04:43 White Blood Count 7.1 Red Blood Count 4.60 Hemoglobin 11.9 L Hematocrit 36.9 L Mean Corpuscular Volume 80.2 L Mean Corpuscular Hemoglobin 25.9 L Mean Corpuscular Hemoglobin Concent 32.2 Red Cell Distribution Width 14.4 Platelet Count 267 Mean Platelet Volume 9.6 Immature Granulocytes % 0.100 Neutrophils % 39.3 Lymphocytes % 51.8 H Monocytes % 7.4 Eosinophils % 0.8 Basophils % 0.6 Nucleated Red Blood Cells % 0.0 Immature Granulocytes # 0.010 Neutrophils # 2.8 Lymphocytes # 3.7 H Monocytes # 0.5 Eosinophils # 0.1 Basophils # 0.0 Nucleated Red Blood Cells # 0.0 Erythrocyte Sedimentation Rate 22 Activated Partial Thromboplast Time 25.7 Sodium Level 139 Potassium Level 4.1 Chloride Level 103 Carbon Dioxide Level 24 Anion Gap 12 Blood Urea Nitrogen 14 Creatinine 0.80 Est Glomerular Filtrat Rate mL/min > 60 Glucose Level 102 Calcium Level 9.9 C-Reactive Protein High Sensitivity 1.30 H Medications Medication Current Medications IV Flush (NS 3 ml) 3 ml PER PROTOCOL IV ; Start 07/03/18 at 22:00 Ondansetron HCl (Zofran Inj) 4 mg Q6H PRN IV NAUSEA/VOMITING; Start 07/03/18 at 22:00 Acetaminophen (Tylenol Tab) 650 mg Q6H PRN PO .PAIN 1-3 OR TEMP; Start 07/03/18 at 22:00 Docusate Sodium (Colace) 100 mg Q12H PRN PO .CONSTIPATION; Start 07/03/18 at 22:00 Bisacodyl (Dulcolax) 5 mg DAILY PRN PO .CONSTIPATION; Start 07/03/18 at 22:00 Pantoprazole (Protonix Tab) 40 mg DAILY@06 PO Last administered on 07/08/18at 05:16; Admin Dose 40 MG; Start 07/04/18 at 06:00 Hydralazine HCl (Apresoline) 10 mg Q4H PRN IV ELEVATED BLOOD PRESSURE; Start 07/03/18 at 23:30 Metoprolol Tartrate (Lopressor) 25 mg DAILY PO Last administered on 07/07/18at 08:32; Admin Dose 25 MG; Start 07/04/18 at 09:00 Aspirin (Halfprin) 81 mg DAILY PO Last administered on 07/07/18at 08:32; Admin Dose 81 MG; Start 07/04/18 at 09:00 Atorvastatin Calcium (Lipitor) 80 mg HS PO Last administered on 07/07/18at 23:02; Admin Dose 80 MG; Start 07/03/18 at 23:30 Prednisone (Prednisone) 1 mg DAILY PO Last administered on 07/07/18at 08:32; Admin Dose 1 MG; Start 07/05/18 at 09:00 Lorazepam (Ativan) 0.5 mg QHS PRN IV INSOMNIA Last administered on 07/08/18at 00:50; Admin Dose 0.5 MG; Start 07/05/18 at 23:00 Acyclovir (Zovirax) 400 mg DAILY PO ; Start 07/08/18 at 09:00 JARETT LOWRY MD Jul 08, 2018 09:06
[2018-07-08] MEDS: predniSONE 1 MG TAB PO SCH (09:54)
[2018-07-08] MEDS: ACYCLOVIR 400 MG TAB PO SCH (09:54)
[2018-07-08] MEDS: ASPIRIN (EC) 81 MG TAB PO SCH (09:54)
[2018-07-08] MEDS: METOPROLOL 25 MG TAB PO SCH (09:56)
--- NOTE | 2018-07-08 13:16 | CONS ---
Assessment/Plan Assessment/Plan Hospital Course (Demo Recall) Acute CVA: Though cardioembolic is possible, workup so far including bubble study and tele monitoring are unremarkable. EF is preserved. The fact that CTA shows possible old dissection/vasculitis or FMD and MRA initially showed thrombus which no longer is seen is concerning for a vascular thrombotic process in the carotid artery itself. Anticoagulation is appropriate with timing to be determined by neurology to avoid hemorrhagic conversion. Outpt rheumatologic workup is also necessary. 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 Sarcoidosis HTN -timing of anticoagulation per neurology. When able, can start Eliquis 5mg BID or Xarelto 20mg daily -ASA (can stop once anticoagulation started) -lipitor -metoprolol -otherwise ok for d.c from my perspective Consultation Date/Type/Reason Admit Date/Time Jul 03, 2018 at 12:52 Initial Consult Date 07/06/18 Type of Consult Cardiology Requesting Provider: MINH BRAUN NP Date/Time of Note DATE: 07/08/18 TIME: 13:15 24 HR Interval Summary Free Text/Dictation Transferred to med surg. Doing well. No complaints Exam/Review of Systems Vital Signs Vitals Vital Signs Date Temp Pulse Resp B/P (MAP) Pulse Ox O2 O2 Flow FiO2 Time Delivery Rate 07/08/18 98.0 83 14 112/59 96 Room Air 07:22 (76) Intake and Output 07/07/18 07/07/18 07/08/18 1414:59 22:59 06:59 IntakeIntake Total 380 ml 350 ml 640 ml BalanceBalance 380 ml 350 ml 640 ml Exam Constitutional: alert, oriented Psych: no complaints, nl mood/affect Head: normocephalic, atraumatic Neck: supple; No jvd Respiratory: clear to auscultation; No crackles/rales Cardiovascular: regular rate and rhythm; No edema Gastrointestinal: soft, non-tender Labs Result Diagram: 07/08/182 07/08/183 Results 24hrs Laboratory Tests Test 07/08/18 04:42 07/08/18 04:43 White Blood Count 7.1 Red Blood Count 4.60 Hemoglobin 11.9 L Hematocrit 36.9 L Mean Corpuscular Volume 80.2 L Mean Corpuscular Hemoglobin 25.9 L Mean Corpuscular Hemoglobin Concent 32.2 Red Cell Distribution Width 14.4 Platelet Count 267 Mean Platelet Volume 9.6 Immature Granulocytes % 0.100 Neutrophils % 39.3 Lymphocytes % 51.8 H Monocytes % 7.4 Eosinophils % 0.8 Basophils % 0.6 Nucleated Red Blood Cells % 0.0 Immature Granulocytes # 0.010 Neutrophils # 2.8 Lymphocytes # 3.7 H Monocytes # 0.5 Eosinophils # 0.1 Basophils # 0.0 Nucleated Red Blood Cells # 0.0 Erythrocyte Sedimentation Rate 22 Activated Partial Thromboplast Time 25.7 Sodium Level 139 Potassium Level 4.1 Chloride Level 103 Carbon Dioxide Level 24 Anion Gap 12 Blood Urea Nitrogen 14 Creatinine 0.80 Est Glomerular Filtrat Rate mL/min > 60 Glucose Level 102 Calcium Level 9.9 C-Reactive Protein High Sensitivity 1.30 H Medications Medications Current Medications IV Flush (NS 3 ml) 3 ml PER PROTOCOL IV ; Start 07/03/18 at 22:00 Ondansetron HCl (Zofran Inj) 4 mg Q6H PRN IV NAUSEA/VOMITING; Start 07/03/18 at 22:00 Acetaminophen (Tylenol Tab) 650 mg Q6H PRN PO .PAIN 1-3 OR TEMP; Start 07/03/18 at 22:00 Docusate Sodium (Colace) 100 mg Q12H PRN PO .CONSTIPATION; Start 07/03/18 at 22:00 Bisacodyl (Dulcolax) 5 mg DAILY PRN PO .CONSTIPATION; Start 07/03/18 at 22:00 Pantoprazole (Protonix Tab) 40 mg DAILY@06 PO Last administered on 07/08/18at 05:16; Admin Dose 40 MG; Start 07/04/18 at 06:00 Hydralazine HCl (Apresoline) 10 mg Q4H PRN IV ELEVATED BLOOD PRESSURE; Start 07/03/18 at 23:30 Metoprolol Tartrate (Lopressor) 25 mg DAILY PO Last administered on 07/08/18at 09:56; Admin Dose 25 MG; Start 07/04/18 at 09:00 Aspirin (Halfprin) 81 mg DAILY PO Last administered on 07/08/18at 09:54; Admin Dose 81 MG; Start 07/04/18 at 09:00 Atorvastatin Calcium (Lipitor) 80 mg HS PO Last administered on 07/07/18at 23:02; Admin Dose 80 MG; Start 07/03/18 at 23:30 Prednisone (Prednisone) 1 mg DAILY PO Last administered on 07/08/18at 09:54; Admin Dose 1 MG; Start 07/05/18 at 09:00 Lorazepam (Ativan) 0.5 mg QHS PRN IV INSOMNIA Last administered on 07/08/18at 00:50; Admin Dose 0.5 MG; Start 07/05/18 at 23:00 Acyclovir (Zovirax) 400 mg DAILY PO Last administered on 07/08/18at 09:54; Admin Dose 400 MG; Start 07/08/18 at 09:00 VILMA SAMANIEGO Jul 08, 2018 13:16
[2018-07-08] MEDS: ATORVASTATIN 80 MG TAB PO SCH (20:57)
[2018-07-09 05:23] VITALS: BP 113/59; PULSE 87; RESP 20
[2018-07-09] MEDS: PANTOPRAZOLE (EC) 40 MG TAB PO SCH (05:26)
[2018-07-09 08:06] VITALS: BP 109/63; PULSE 79; RESP 20
[2018-07-09] MEDS: ASPIRIN (EC) 81 MG TAB PO SCH (08:43)
[2018-07-09] MEDS: predniSONE 1 MG TAB PO SCH (08:43)
[2018-07-09] MEDS: ACYCLOVIR 400 MG TAB PO SCH (08:43)
[2018-07-09] MEDS: METOPROLOL 25 MG TAB PO SCH (08:44)
--- NOTE | 2018-07-09 12:30 | PDOCDIS ---
Discharge Instructions CONDITION [id number] Patient Condition: [id number] Stable HOME CARE INSTRUCTIONS: [id number] Diet Instructions: [id number] Low Fat /Cholesterol ACTIVITY: [id number] Activity Restrictions: Tzmoa2m Slowly Increase Activity Rest between Activity Avoid heavy lifting Do not Drive Do not operate Machinery Do not operate Power Tool Avoid Heavy Housework [id number] Bathing Restrictions: [id number] Shower [id number] Activity Restrictions [id number] use assistive device to Comment: prevent falls FOLLOW UP/APPOINTMENTS Follow-up Plan Follow-up with primary care physician in 1 week. Follow-up with and in1-2 weeks regarding when to stop aspirin and start blood thinner if needed later. Name, Degree Moustapha Nance MD Specialty Interventional Cardiology Comments Office Address [address] [place] [address] Office Name, Degree Rosa Maria Michelle MD Specialty Neurology Comments Office Address [address] [facility] [place] [id number] Office MINH BRAUN NP Jul 09, 2018 12:30
[2018-07-09] MEDS ORDERED: ASPI-1044 PO (12:32)
[2018-07-09] MEDS ORDERED: ALPR0.25 PO (12:32)
[2018-07-09] MEDS ORDERED: ATOR-2 PO (12:32)
--- NOTE | 2018-07-09 12:34 | CONS ---
Assessment/Plan Assessment/Plan Hospital Course 63 F c/ HTN who presents for evaluation of R sided weakness c/b fall...for which neurology is consulted. MRI brain confirmed an acute L fronto-parietal infarction. MRA Neck was notable for moderate to severe L cervical ICA stenosis w/ nonocclusive thrombus...CTA is negative for the same.. MRA Head was unremarkable TTE is unrevealing LDL 128; A1C 6.0; RPR neg; ESR wnl P: Rec asa w/ lipitor daily for secondary stroke prevention in the acute setting Appreciate cardiology recs re: utility of NINOSKA.. Agree w/ rheumatologic workup, which may be done as an outpatient PT/OT/ST as necessary BP control and other medical management per primary Will follow clinically Consultation Date/Type/Reason Admit Date/Time Jul 03, 2018 at 12:52 Type of Consult Neurology Requesting Provider: MINH BRAUN NP Date/Time of Note DATE: 07/09/18 TIME: 12:33 Exam Vital Signs Vitals Vital Signs Date Temp Pulse Resp B/P (MAP) Pulse Ox O2 O2 Flow FiO2 Time Delivery Rate 07/09/18 98.3 79 20 109/63 94 Room Air 08:06 (78) Intake and Output 07/08/18 07/08/18 07/09/18 1515:00 23:00 07:00 IntakeIntake Total 200 ml 705 ml 300 ml BalanceBalance 200 ml 705 ml 300 ml CAROLINE PERSON NP Jul 09, 2018 12:34
--- NOTE | 2018-07-09 13:04 | CONS ---
Assessment/Plan Assessment/Plan Hospital Course 63 F c/ HTN who presents for evaluation of R sided weakness c/b fall...for which neurology is consulted. MRI brain confirmed an acute L fronto-parietal infarction. MRA Neck was notable for moderate to severe L cervical ICA stenosis w/ nonocclusive thrombus...CTA is negative for the same.. MRA Head was unremarkable TTE is unrevealing LDL 128; A1C 6.0; RPR neg; ESR wnl P: Rec asa w/ lipitor daily for secondary stroke prevention, unless true indication for anticoagulation is identified. PT/OT/ST as necessary BP control and other medical management per primary Neurologically cleared for dc Consultation Date/Type/Reason Admit Date/Time Jul 03, 2018 at 12:52 Type of Consult Neurology Reason for Consultation stroke Requesting Provider: MINH BRAUN NP Date/Time of Note DATE: 07/09/18 TIME: 13:03 24 HR Interval Summary Free Text/Dictation Continues acute care Exam Vital Signs Vitals Vital Signs Date Temp Pulse Resp B/P (MAP) Pulse Ox O2 O2 Flow FiO2 Time Delivery Rate 07/09/18 98.3 79 20 109/63 94 Room Air 08:06 (78) Intake and Output 07/08/18 07/08/18 07/09/18 1515:00 23:00 07:00 IntakeIntake Total 200 ml 705 ml 300 ml BalanceBalance 200 ml 705 ml 300 ml Exam PE: Gen Appearance: No Apparent Distress HEENT: Normocephalic Cardiovascular: Regular rate Lungs: Clear bilaterally Abdomen: Soft Extremities: Dry NE: The patient was alert and oriented. Language was normal. Fund of knowledge was normal. Pupils were equal and reactive to light. There was no afferent pupillary defect. Visual lopez were normal. Funduscopic examination was limited. Extra-ocular movements were full. Ptosis was absent. There was no nystagmus. Facial sensation was normal. Face was asymmetric at rest, with normal activation.. Hearing was intact. Palate movements were normal. Neck strength was normal. There was normal tongue bulk and speed of movement. Tone was normal. Muscle bulk was normal. I did not see fasciculations. Arms and legs were mildly weak to confrontation on the right. Vibration sensation was normal. Temperature and pinprick sensation was normal. Rapid alternating movements were normal. There was no dysmetria. There was no intention tremor. Gait was steady. Arm and leg reflexes were symmetric. Ch's sign was absent. Plantar responses were flexor. JA VEGA Jul 09, 2018 13:04 CAROLINE PERSON NP Jul 09, 2018 14:24
--- NOTE | 2018-07-09 13:48 | DS ---
Date/Time of Note Date/Time of Note DATE: 07/09/18 TIME: 13:45 Discharge Summary Admission/Discharge Info Admit Date/Time Jul 03, 2018 at 12:52 Discharge Date/Time Discharge Diagnosis 1.Acute cerebrovascular accident 3. Sarcoidosis 4. Hypertension 5. HSV 6.Lumbar disc prolapse, chronic 7.Migraine headaches 8. Dyslipidemia. Patient Condition: Stable Consults ,neuro ,cards ,vascular Procedures 07/04/2018. MRI brain without contrast. IMPRESSION: 1. Acute left posterior frontal and anterior parietal periventricular and deep white matter ischemic infarct. 2. Mild chronic microvascular ischemic disease 07/05/2018. CTA neck. IMPRESSION: 1. No hemodynamically significant stenosis. 2. Slight luminal irregularity is present in the distal left and right internal carotid arteries at the C1 level. Differential diagnosis includes fibromuscular dysplasia, sequela of remote internal prior dissection and vasculitis. 3. Proximal left ICA stenosis and suspected intraluminal thrombus is suspected on the MRA neck exam is not identified. physician performance consultant requested to call report at 1826 hours P S T. 07/04/2018. 2D echocardiogram. Conclusions: Normal left ventricular systolic function. Grade 1 diastolic dysfunction. Bubble study negative for right to left shunting. Trace mitral, tricuspid and pulmonic regurgitation with normal pulmonary pressures. Electronically Signed By: Jenniffer Benavides 2018-07-04 20:17:12 PDT Hospital Course Is a 63-year-old female with a history of migraine, GERD, HSV, osteoarthritis, sarcoidosis, admitted with right-sided weakness and slurred speech, found to have acute CVA. Patient's MRI showed acute left posterior frontal and anterior parietal periventricular and deep white matter ischemic infarct. Patient's initial MRA was also concerning for possible left ICA stenosis which was not shown in the repeated CT and neck. Patient had vascular follow-up and there was no further intervention indicated at CT I did not detect the stenosis. Patient was managed medically for stroke with antiplatelet/high intensity statin. She was being also followed by cardiology to rule out any possible cardioembolic stroke. Patient did well in terms of CVA. Her weakness improved. Speech got cleared. Patient did not need any further inpatient rehab and was cleared for home with current DME's which she already has available. Approximately 60 minutes spent on coordinating the discharge on this patient. Patient was seen in collaboration with Dr. Yoon [facility] Active Scripts Alprazolam* (Xanax*) 0.25 Mg Tablet, 0.25 MG PO HS for ANXIETY, #20 TAB Prov:MINH BRAUN V. STENCIL PRINTER 07/09/18 Aspirin Delayed Release (Aspirin Delayed Release) 81 Mg Tablet., 81 MG PO DAILY, #30 TAB Prov:BRAUNMINH FLORES V. STENCIL PRINTER 07/09/18 Atorvastatin* (Atorvastatin*) 80 Mg Tablet, 80 MG PO HS, #30 TAB Prov:MINH BRAUN V. STENCIL PRINTER 07/09/18 Hydrocodone/Acetaminophen (Lincoln 5-325 Tablet) 1 Each Tablet, 1 TAB PO Q6H PRN for PAIN, #14 TAB Prov:AKBAR BANKS MD 06/06/18 Reported Medications Ergocalciferol (Vitamin D2) (VITAMIN D2) 50,000 Unit Capsule, 40954 UNIT PO Q SUN, CAP 07/03/18 Prednisone* (Prednisone*) 1 Mg Tablet, 2 MG PO DAILY, TAB 07/03/18 Omeprazole* (Omeprazole*) 20 Mg Capsule.dr, 20 MG PO DAILY, #30 CAP 07/03/18 Metoprolol Tartrate* (Lopressor*) 25 Mg Tab, 25 MG PO DAILY, #60 TAB 07/03/18 Acyclovir* (Acyclovir*) 200 Mg Capsule, 200 MG PO DAILY, CAP 07/03/18 Cyclobenzaprine Hcl* (Cyclobenzaprine Hcl*) 10 Mg Tablet, 10 MG PO QHS, #60 TAB 07/03/18 Doxepin Hcl* (Doxepin Hcl*) 25 Mg Capsule, 50 MG PO HS, CAP 07/03/18 Discontinued Reported Medications Zolpidem Tartrate* (Zolpidem Tartrate*) 10 Mg Tablet, 10 MG PO QHS PRN for INSOMNIA, #30 TAB 07/03/18 Metoclopramide* (Reglan*) 5 Mg Tablet, 5 MG PO DAILY BEFORE MEALS, TAB 07/03/18 Discontinued Scripts Hydrocodone/Acetaminophen (Lincoln 5-325 Tablet) 1 Each Tablet, 1 TAB PO Q6H PRN for PAIN, #10 TAB Prov:AKBAR BANKS MD 08/29/17 Follow-up Plan Follow-up with primary care physician in 1 week. Follow-up with and in1-2 weeks regarding when to stop aspirin and start blood thinner if needed later. Name, Degree Moustapha Nance MD Specialty Interventional Cardiology Comments Office Address [address] [place] [address] Office Name, Degree Rosa Maria Michelle MD Specialty Neurology Comments Office Address [address] [place] [address] Office Primary Care Provider Gilles Mcgregor Pending Labs Laboratory Tests Test 07/09/18 04:34 White Blood Count 6.6 10^3/ul (4.8-10.8) Red Blood Count 4.56 10^6/ul (4.20-5.40) Hemoglobin 11.7 g/dl (12.0-16.0) Hematocrit 36.5 % (37.0-47.0) Mean Corpuscular Volume 80.0 fl (82.0-101.0) Mean Corpuscular Hemoglobin 25.7 pg (29.0-33.0) Mean Corpuscular Hemoglobin Concent 32.1 g/dl (32.0-37.0) Red Cell Distribution Width 14.2 % (11.5-14.5) Platelet Count 280 10^3/UL (140-415) Mean Platelet Volume 9.2 fl (7.4-10.4) Immature Granulocytes % 0.200 % (0.001-0.429) Neutrophils % 33.6 % (39.0-77.0) Lymphocytes % 57.4 % (15.0-51.0) Monocytes % 7.1 % (0.0-11.0) Eosinophils % 0.9 % (0.0-7.0) Basophils % 0.8 % (0.0-2.0) Nucleated Red Blood Cells % 0.0 /100WBC (0.0-0.0) Immature Granulocytes # 0.010 10^3/ul (0.0-0.031) Neutrophils # 2.2 10^3/ul (1.6-7.5) Lymphocytes # 3.8 10^3/ul (0.8-2.9) Monocytes # 0.5 10^3/ul (0.3-0.9) Eosinophils # 0.1 10^3/ul (0.0-0.5) Basophils # 0.1 10^3/ul (0.0-0.1) Nucleated Red Blood Cells # 0.0 10^3/ul (0.0-0.0) Activated Partial Thromboplast Time 29.2 Sec (23.0-35.0) Sodium Level 139 mmol/L (135-144) Potassium Level 4.3 mmol/L (3.5-5.1) Chloride Level 105 mmol/L (97-110) Carbon Dioxide Level 25 mmol/L (21-31) Anion Gap 9 (5-13) Blood Urea Nitrogen 15 mg/dl (7-20) Creatinine 0.78 mg/dl (0.44-1.00) Est Glomerular Filtrat Rate mL/min > 60 mL/min (>60) Glucose Level 106 mg/dl (70-220) Calcium Level 9.9 mg/dl (8.4-10.2) MINH BRAUN V. STENCIL PRINTER Jul 09, 2018 13:48
== END 2018-07-09 14:02 | disposition home or self-care (01) | DRG 65 ==
LOC: E/R 10:31 → 6WM 12:52 → CANBEDREQ 07-04 11:03 → MS1 07-08 04:25
PROVIDERS: ADMIT Family Medicine; ATTEND Hospitalist
PROC: 3E0F7GC Introduction of Other Therapeutic Substance into Respiratory Tract, Via Natural or Artificial Opening (ICD-10-PCS; principal; 2018-07-03)
DX: I63.9 Cerebral infarction, unspecified (principal); G81.91 Hemiplegia, unspecified affecting right dominant side; I10 Essential (primary) hypertension; Z96.642 Presence of left artificial hip joint; D86.9 Sarcoidosis, unspecified; M51.26 Other intervertebral disc displacement, lumbar region; G47.00 Insomnia, unspecified; K21.9 Gastro-esophageal reflux disease without esophagitis; E78.5 Hyperlipidemia, unspecified; G43.909 Migraine, unspecified, not intractable, without status migrainosus
CPT/HCPCS: 36415; 70450; 70498; 70544; 70548; 70551; 71045; 80048; 80053; 80061; 80307; 81003; 82962; 83036; 83735; 84443; 84484; 85025; 85610; 85613; 85651; 85730; 86140; 86226; 86592; 86692; 86703; 92610; 93005; 93306; 93880; 97116; 97162; 97165; 97530; J1644; J2060; J7030; J7512; Q9967